=== PATIENT | female | born 1970 | race Caucasian/White ===

== ENCOUNTER 2018-09-17 12:29 | Observation (INO) | payer MEDICARE ==
[2018-09-17] MEDS ORDERED: BENADRYL 50 MG/ML IV ONE (13:26)
[2018-09-17] MEDS ORDERED: Pepcid 20 MG VIAL IV ONE ×2 (13:26→14:10)
[2018-09-17] MEDS ORDERED: PROTONIX 40 MG IV IV ONE ×2 (13:26→13:58)
[2018-09-17] MEDS ORDERED: MORPHINE SULFATE 4 MG INJ IV ONE (13:26)
[2018-09-17] MEDS ORDERED: Zofran 4 MG/2 ML VIAL IV ONE (13:26)
[2018-09-17] MEDS ORDERED: Sodium Chloride 0.9% 1000 ML 1,000 ML IV STA (13:26)
--- NOTE | 2018-09-17 13:26 | ERPHSYRPT ---
- History of Present Illness Time Seen by Provider: 09/17/18 13:23 Historian: patient Exam Limitations: no limitations Patient Subjective Stated Complaint: abdominal pain with N&V Triage Nursing Assessment: Pt c/o of abdominal pain in all 4 quadrants and low back pain, abdominal pain with palpation in all 4 quadrants, pt stated that she vomited at 0400 this morning, hx of pancreatitis, vitals wnl, pulses normal, rates pain 10/10, doesn't appear to be in any distress Physician History: pt has hx pancreatitis - heriditary type by hx , had GB out and non drinker- and feels like panc again to pt; no trauma; very tender all quads of abd ; Timing/Duration: day(s) Quality: pressure, sharpness, stabbing, throbbing Abdominal Pain Onset Location: RUQ, LUQ, RLQ, LLQ, epigastric, generalized abdomen Pain Radiation: back Severity of Pain-Max: moderate Severity of Pain-Current: moderate Modifying Factors: Improves With: nothing Associated Symptoms: back, nausea, vomiting Previous symptoms: same symptoms as today Allergies/Adverse Reactions: Penicillins Allergy (Verified 09/17/18 12:56) - Review of Systems Constitutional: No Fever, No Chills Eyes: No Symptoms Ears, Nose, & Throat: No Symptoms Respiratory: No Cough, No Dyspnea Cardiac: No Chest Pain, No Edema, No Syncope Abdominal/Gastrointestinal: Abdominal Pain, Nausea, Vomiting, No Diarrhea Genitourinary Symptoms: No Dysuria Musculoskeletal: Back Pain, No Neck Pain Skin: No Rash Neurological: No Dizziness, No Focal Weakness, No Sensory Changes Psychological: No Symptoms Endocrine: No Symptoms All Other Systems: Reviewed and Negative - Past Medical History Pertinent Past Medical History: Yes Cardiac History: Other Respiratory History: COPD GI Medical History: Pancreatitis, Other Other Medical History: enlarged heart - Past Surgical History Past Surgical History: Yes Gastrointestinal: Cholecystectomy Female Surgical History: Hysterectomy - Social History Smoking Status: Current every day smoker How long have you smoked: 22 years Exposure to second hand smoke: Yes Drug Use: none Patient Lives Alone: No - Female History Hx Now: No (hysterectomy) - Nursing Vital Signs Nursing Vital Signs: Initial Vital Signs Temperature 97.9 F 09/17/18 12:41 Pulse Rate 91 H 09/17/18 12:41 Blood Pressure 136/88 09/17/18 12:41 O2 Sat by Pulse Oximetry 97 09/17/18 12:41 Pain Scale Pain Intensity 3 - Physical Exam General Appearance: no apparent distress, alert Eye Exam: PERRL/EOMI, eyes nml inspection Ears, Nose, Throat Exam: normal ENT inspection, pharynx normal, moist mucous membranes Neck Exam: normal inspection, non-tender, supple, full range of motion Respiratory Exam: normal breath sounds, lungs clear, No respiratory distress Cardiovascular Exam: regular rate/rhythm, normal heart sounds Gastrointestinal/Abdomen Exam: soft, No tenderness, No mass Pelvic Exam: deferred Rectal Exam: deferred Back Exam: normal inspection, normal range of motion, No CVA tenderness, No vertebral tenderness Extremity Exam: normal inspection, normal range of motion, pelvis stable Neurologic Exam: alert, oriented x 3, cooperative, normal mood/affect, nml cerebellar function, sensation nml, No motor deficits Skin Exam: normal color, warm, dry SpO2: 97 Oxygen Delivery: Room Air - Course Nursing assessment & vital signs reviewed: Yes - CT Exams Abdomen/Pelvis CT Interpretation: Tele-radiologist Report, No appendicitis Ordered Tests: Active Orders 24 hr Category Date Time Status Clean Catch Urine Specimen STAT Care 09/17/18 13:26 Active EKG-ER Only STAT Care 09/17/18 13:26 Active IV Insertion STAT Care 09/17/18 13:26 Active ABDOMEN AND PELVIS W/0 CONTRAS [CT] Stat Exams 09/17/18 13:27 Taken AMYLASE Stat Lab 09/17/18 14:11 Completed CBC W DIFF Stat Lab 09/17/18 14:11 Completed CMP Stat Lab 09/17/18 14:11 Completed HCG QUALITATIVE,SERUM Stat Lab 09/17/18 14:11 Completed LIPASE Stat Lab 09/17/18 14:11 Completed Lactic Acid Stat Lab 09/17/18 14:10 Completed TROPONIN Q3H Lab 09/17/18 14:11 Completed TROPONIN Q3H Lab 09/17/18 16:30 Ordered TROPONIN Q3H Lab 09/17/18 19:30 Ordered TROPONIN Q3H Lab 09/17/18 22:30 Ordered TROPONIN Q3H Lab 09/18/18 01:30 Ordered UA W/RFX UR CULTURE Stat Lab 09/17/18 13:26 Completed Medication Summary Discontinued Medications Generic Name Dose Route Start Last Admin Trade Name Freq PRN Reason Stop Dose Admin Diphenhydramine HCl 25 mg 09/17/18 13:26 09/17/18 14:26 Benadryl 50 Mg/Ml IV 09/17/18 13:27 25 mg STAT ONE Administration Diphenhydramine HCl Confirm 09/17/18 13:58 Benadryl 50 Mg/Ml Administered 09/17/18 13:59 Dose 50 mg .ROUTE .STK-MED ONE Famotidine 20 mg 09/17/18 13:26 09/17/18 14:26 Pepcid 20 Mg Vial IV 09/17/18 13:27 20 mg STAT ONE Administration Famotidine Confirm 09/17/18 13:58 Pepcid 20 Mg Administered 09/17/18 13:59 Dose 20 mg .ROUTE .STK-MED ONE Famotidine Confirm 09/17/18 14:10 Pepcid 20 Mg Vial Administered 09/17/18 14:11 Dose 20 mg IV .STK-MED ONE Sodium Chloride 1,000 mls @ 999 mls/hr 09/17/18 13:26 09/17/18 15:51 Sodium Chloride 0.9% 1000 Ml IV 09/17/18 14:26 Infused .Q1H1M STA Infusion Sodium Chloride Confirm 09/17/18 13:58 Sodium Chloride 0.9% 1000 Ml Administered 09/17/18 13:59 Dose 1,000 mls @ ud .ROUTE .STK-MED ONE Morphine Sulfate 4 mg 09/17/18 13:26 09/17/18 14:26 Morphine Sulfate 4 Mg Inj IV 09/17/18 13:27 4 mg STAT ONE Administration Morphine Sulfate Confirm 09/17/18 13:58 Morphine Sulfate 4 Mg Inj Administered 09/17/18 13:59 Dose 4 mg .ROUTE .STK-MED ONE Ondansetron HCl 4 mg 09/17/18 13:26 09/17/18 14:27 Zofran 4 Mg/2 Ml Vial IV 09/17/18 13:27 4 mg STAT ONE Administration Ondansetron HCl Confirm 09/17/18 13:57 Zofran 4 Mg/2 Ml Vial Administered 09/17/18 13:58 Dose 4 mg .ROUTE .STK-MED ONE Pantoprazole Sodium 40 mg 09/17/18 13:26 09/17/18 14:27 Protonix 40 Mg Iv IV 09/17/18 13:27 40 mg STAT ONE Administration Pantoprazole Sodium Confirm 09/17/18 13:58 Protonix 40 Mg Iv Administered 09/17/18 13:59 Dose 40 mg IV .STK-MED ONE Lab/Rad Data: Laboratory Result Diagrams 09/17/18 14:11 09/17/18 14:11 Laboratory Results 09/17/18 09/17/18 09/17/18 Range/Units 14:11 14:11 14:11 WBC (4.0-10.5) K/mm3 RBC (4.1-5.4) M/mm3 Hgb (12.0-16.0) gm/dl Hct (35-47) % MCV (78-100) fl MCH (26-32) pg MCHC (32-36) g/dl RDW (11.5-14.0) % Plt Count (150-450) K/mm3 MPV (6-9.5) fl Gran % (36.0-66.0) % Eos # (Auto) (0-0.5) Absolute Lymphs (auto) (1.0-4.6) Absolute Monos (auto) (0.0-1.3) Lymphocytes % (24.0-44.0) % Monocytes % (0.0-12.0) % Eosinophils % (0.00-5.0) % Basophils % (0.0-0.4) % Absolute Granulocytes (1.4-6.9) Basophils # (0-0.4) Sodium 140 (137-145) mmol/L Potassium 4.1 (3.5-5.1) mmol/L Chloride 106 (98-107) mmol/L Carbon Dioxide 23 (22-30) mmol/L Anion Gap 15.7 H (5-15) MEQ/L BUN 22 H (7-17) mg/dL Creatinine 0.76 (0.52-1.04) mg/dL Estimated GFR > 60.0 ML/MIN Glucose 86 (74-106) mg/dL Lactic Acid (0.4-2.0) Calcium 9.7 (8.4-10.2) mg/dL Total Bilirubin 0.20 (0.2-1.3) mg/dL AST 23 (14-36) U/L ALT 23 (0-35) U/L Alkaline Phosphatase 94 (38-126) U/L Troponin I < 0.012 (0.000-0.034) ng/mL Serum Total Protein 7.8 (6.3-8.2) g/dL Albumin 4.6 (3.5-5.0) g/dL Amylase 106 (30-110) U/L Lipase 363 H (23-300) U/L Serum , Qual NEGATIVE (Negative) Urine Color (YELLOW) Urine Appearance (CLEAR) Urine pH (5-6) Ur Specific [place] (1.005-1.025) Urine Protein (Negative) Urine Ketones (NEGATIVE) Urine Blood (0-5) Rasheed/ul Urine Nitrite (NEGATIVE) Urine Bilirubin (NEGATIVE) Urine Urobilinogen (0-1) mg/dL Ur Leukocyte Esterase (NEGATIVE) Urine WBC (Auto) (0-5) /HPF Urine RBC (Auto) (0-2) /HPF U Epithel Cells (Auto) (FEW) /HPF Urine Bacteria (Auto) (NEGATIVE) /HPF Urine Mucus (Auto) (NEGATIVE) /HPF Urine Culture Reflexed (NO) Urine Glucose (NEGATIVE) mg/dL 09/17/18 09/17/18 09/17/18 Range/Units 14:11 14:10 13:26 WBC 8.9 (4.0-10.5) K/mm3 RBC 4.98 (4.1-5.4) M/mm3 Hgb 14.4 (12.0-16.0) gm/dl Hct 44.2 (35-47) % MCV 88.8 (78-100) fl MCH 28.9 (26-32) pg MCHC 32.6 (32-36) g/dl RDW 14.5 H (11.5-14.0) % Plt Count 254 (150-450) K/mm3 MPV 9.3 (6-9.5) fl Gran % 49.4 (36.0-66.0) % Eos # (Auto) 0.30 (0-0.5) Absolute Lymphs (auto) 3.49 (1.0-4.6) Absolute Monos (auto) 0.68 (0.0-1.3) Lymphocytes % 39.2 (24.0-44.0) % Monocytes % 7.6 (0.0-12.0) % Eosinophils % 3.4 (0.00-5.0) % Basophils % 0.4 (0.0-0.4) % Absolute Granulocytes 4.40 (1.4-6.9) Basophils # 0.04 (0-0.4) Sodium (137-145) mmol/L Potassium (3.5-5.1) mmol/L Chloride (98-107) mmol/L Carbon Dioxide (22-30) mmol/L Anion Gap (5-15) MEQ/L BUN (7-17) mg/dL Creatinine (0.52-1.04) mg/dL Estimated GFR ML/MIN Glucose (74-106) mg/dL Lactic Acid 1.7 (0.4-2.0) Calcium (8.4-10.2) mg/dL Total Bilirubin (0.2-1.3) mg/dL AST (14-36) U/L ALT (0-35) U/L Alkaline Phosphatase (38-126) U/L Troponin I (0.000-0.034) ng/mL Serum Total Protein (6.3-8.2) g/dL Albumin (3.5-5.0) g/dL Amylase (30-110) U/L Lipase (23-300) U/L Serum , Qual (Negative) Urine Color YELLOW (YELLOW) Urine Appearance CLEAR (CLEAR) Urine pH 5.0 (5-6) Ur Specific [place] 1.016 (1.005-1.025) Urine Protein NEGATIVE (Negative) Urine Ketones NEGATIVE (NEGATIVE) Urine Blood SMALL (0-5) Rasheed/ul Urine Nitrite NEGATIVE (NEGATIVE) Urine Bilirubin NEGATIVE (NEGATIVE) Urine Urobilinogen NEGATIVE (0-1) mg/dL Ur Leukocyte Esterase NEGATIVE (NEGATIVE) Urine WBC (Auto) NONE (0-5) /HPF Urine RBC (Auto) NONE (0-2) /HPF U Epithel Cells (Auto) NONE (FEW) /HPF Urine Bacteria (Auto) NONE (NEGATIVE) /HPF Urine Mucus (Auto) SLIGHT (NEGATIVE) /HPF Urine Culture Reflexed NO (NO) Urine Glucose NEGATIVE (NEGATIVE) mg/dL - Progress Progress: improved, re-examined Progress Note: 09/17/18 16:[address] shaw and pt and will place in on obs for pancreatitis Discussed with : Patricia Cuba Will see patient in: hospital (observation) Counseled pt/family regarding: lab results, diagnosis, need for follow-up, rad results - Departure Time of Disposition: 16:14 Departure Disposition: Observation Clinical Impression: Pancreatitis Condition: Good Critical Care Time: No Referrals: PHONG STAHL [Primary Care Provider] -
[2018-09-17 13:53] LABS: Appearance CLEAR (CLEAR); Bilirubin NEGATIVE (NEGATIVE); Blood SMALL Ery/ul (0-5); Glucose NEGATIVE (NEGATIVE); Ketones NEGATIVE (NEGATIVE); Leukocyte Esterase NEGATIVE (NEGATIVE); Nitrite NEGATIVE (NEGATIVE); Protein,Urine Dip NEGATIVE (Negative); Specific Gravity 1.016 (1.005-1.025); Urobilinogen NEGATIVE mg/dL (0-1)
[2018-09-17] MEDS ORDERED: Zofran 4 MG/2 ML VIAL ONE (13:57)
[2018-09-17] MEDS ORDERED: Sodium Chloride 0.9% 1000 ML 1,000 ML ONE (13:58)
[2018-09-17] MEDS ORDERED: Pepcid 20 MG ONE (13:58)
[2018-09-17] MEDS ORDERED: BENADRYL 50 MG/ML ONE (13:58)
[2018-09-17] MEDS ORDERED: MORPHINE SULFATE 4 MG INJ ONE (13:58)
[2018-09-17 14:12] LABS: BASOPHIL % 0.4 % (0.0-0.4); Basophil (Absolute #) 0.04 (0-0.4); Eosinophil % 3.4 % (0.00-5.0); Granulocytes % 49.4 % (36.0-66.0); Hematocrit 44.2 % (35-47); Hemoglobin 14.4 gm/dl (12.0-16.0); Lymphocyte (Absolute #) 3.49 (1.0-4.6); Lymphocytes % 39.2 % (24.0-44.0); Mean Cell Volume 88.8 fl (78-100); Mean Corpuscular Hemoglobin 28.9 pg (26-32); Mean Corpuscular Hgb Concent. 32.6 g/dl (32-36); Mean Platelet Volume 9.3 fl (6-9.5); Monocyte (Absolute #) 0.68 (0.0-1.3); Monocytes % 7.6 % (0.0-12.0); Platelet Count 254 K/mm3 (150-450); Red Blood Count 4.98 M/mm3 (4.1-5.4); Red Cell Distribution Width 14.5 % (11.5-14.0); White Blood Count 8.9 K/mm3 (4.0-10.5)
[2018-09-17 14:23] LABS: ALBUMIN 4.6 g/dL (3.5-5.0); ALKALINE PHOSPHATASE 94 U/L (38-126); AMYLASE 106 U/L (30-110); ANION GAP 15.7 MEQ/L (5-15); BLOOD UREA NITROGEN 22 mg/dL (7-17); CHLORIDE 106 mmol/L (98-107); Calcium 9.7 mg/dL (8.4-10.2); Carbon Dioxide 23 mmol/L (22-30); Creatinine 1 0.76 mg/dL (0.52-1.04); Glucose 86 mg/dL (74-106); LIPASE 363 U/L (23-300); Potassium 4.1 mmol/L (3.5-5.1); SGOT/AST 23 U/L (14-36); SGPT/ALT 23 U/L (0-35); SODIUM 140 mmol/L (137-145); Total Protein 7.8 g/dL (6.3-8.2)
[2018-09-17] MEDS ORDERED: Zofran 4 MG/2 ML VIAL IV PRN (16:49)
[2018-09-17] MEDS ORDERED: NovoLIN R SQ PRN (16:49)
[2018-09-17] MEDS ORDERED: TYLENOL 325 MG PO PRN (16:49)
[2018-09-17] MEDS: Sodium Chloride 0.9% 1000 ML 1,000 ML IV SCH (16:56)
[2018-09-17] MEDS: MORPHINE SULFATE 4 MG INJ IV PRN ×2 (17:54→22:55)
--- NOTE | 2018-09-17 20:22 | XRAY ---
Indication: Abdominal pain. History of pancreatitis. Multiple contiguous axial images obtained through the abdomen and pelvis without contrast as ordered. Comparison: None Lung bases essentially clear. Heart is not enlarged. Noncontrasted stomach and bowel loops appear nonobstructed. Normal appendix. Mild scattered sigmoid diverticulosis without diverticulitis. No free fluid/air. Previous cholecystectomy. Remaining liver, pancreas, spleen, adrenal glands, kidneys, ureters, bladder, and aorta appear unremarkable for noncontrast exam. Osseous structures intact. No ventral or inguinal hernias. Impression: 1. Sigmoid diverticulosis. 2. Remaining CT abdomen/pelvis without contrast exam is negative. Comment: Preliminary interpretation was made by [facility]. No discrepancy. CTDI 23.68
[2018-09-17] MEDS ORDERED: Ranexa 500 MG PO ONE (21:06)
[2018-09-17] MEDS: Pepcid 20 MG VIAL IV SCH (21:16)
[2018-09-17] MEDS: Nicoderm CQ 21 MG TOP SCH (21:16)
[2018-09-17] MEDS: XANAX 1 MG PO SCH (21:16)
[2018-09-17] MEDS: Ranexa 500 MG PO SCH (21:16)
[2018-09-17] MEDS ORDERED: Ranexa 500 MG PO SCH (22:00)
[2018-09-18] MEDS: Sodium Chloride 0.9% 1000 ML 1,000 ML IV SCH ×2 (02:50→12:48)
[2018-09-18] MEDS: MORPHINE SULFATE 4 MG INJ IV PRN ×3 (04:10→12:49)
[2018-09-18 05:54] LABS: BASOPHIL % 0.4 % (0.0-0.4); Basophil (Absolute #) 0.03 (0-0.4); Eosinophil % 3.9 % (0.00-5.0); Eosinophil (Absolute #) 0.33 (0-0.5); Granulocyte Absolute (ANC) 3.54 (1.4-6.9); Granulocytes % 42.2 % (36.0-66.0); Hematocrit 37.5 % (35-47); Hemoglobin 11.9 gm/dl (12.0-16.0); Lymphocyte (Absolute #) 3.74 (1.0-4.6); Lymphocytes % 44.5 % (24.0-44.0); Mean Cell Volume 91.5 fl (78-100); Mean Corpuscular Hgb Concent. 31.7 g/dl (32-36); Mean Platelet Volume 9.6 fl (6-9.5); Monocyte (Absolute #) 0.76 (0.0-1.3); Platelet Count 224 K/mm3 (150-450); Red Cell Distribution Width 14.5 % (11.5-14.0); White Blood Count 8.4 K/mm3 (4.0-10.5)
[2018-09-18 06:02] LABS: ALBUMIN 3.6 g/dL (3.5-5.0); ALKALINE PHOSPHATASE 62 U/L (38-126); ANION GAP 12.3 MEQ/L (5-15); BLOOD UREA NITROGEN 16 mg/dL (7-17); CHLORIDE 108 mmol/L (98-107); Calcium 8.6 mg/dL (8.4-10.2); Carbon Dioxide 21 mmol/L (22-30); Glucose 82 mg/dL (74-106); Potassium 4.2 mmol/L (3.5-5.1); SGOT/AST 17 U/L (14-36); SGPT/ALT 19 U/L (0-35); SODIUM 137 mmol/L (137-145); Total Protein 6.4 g/dL (6.3-8.2)
[2018-09-18] MEDS ORDERED: Nitrostat 0.4 MG Tablet SL PRN (07:36)
[2018-09-18] MEDS: Ranexa 500 MG PO SCH ×2 (08:28→20:31)
[2018-09-18] MEDS: Protonix 40MG Tablet PO SCH (08:28)
[2018-09-18] MEDS: XANAX 1 MG PO SCH ×2 (08:28→20:31)
[2018-09-18] MEDS: Pepcid 20 MG VIAL IV SCH ×2 (08:29→20:31)
[2018-09-18] MEDS: Zestril 10 MG PO SCH (08:30)
[2018-09-18] MEDS ORDERED: VITAMIN D2 PO SCH (10:00)
[2018-09-18] MEDS ORDERED: FLUZONE QUAD (36mo-64yo) 2018-2019 SYRINGE IM ONE (10:00)
[2018-09-18] MEDS: Nicoderm CQ 21 MG TOP SCH (20:30)
[2018-09-18] MEDS: Norco 10/325 MG Tablet PO PRN (20:31)
--- NOTE | 2018-09-18 21:25 | XRAY ---
Indication: Chest pain. Comparison: None PA/lateral chest demonstrates minimal lingular fibrosis/scarring. No focal infiltrate, consolidation, or large effusion. Heart is not enlarged. Vascularity normal. Bony thorax intact. Impression: Nonacute chest. Comment: Preliminary interpretation was made by [facility]. No critical discrepancy.
[2018-09-19] MEDS: Sodium Chloride 0.9% 1000 ML 1,000 ML IV SCH ×2 (01:41→11:40)
[2018-09-19] MEDS: Norco 10/325 MG Tablet PO PRN ×2 (02:58→09:51)
[2018-09-19 05:38] LABS: BASOPHIL % 0.3 % (0.0-0.4); Basophil (Absolute #) 0.02 (0-0.4); Eosinophil % 3.8 % (0.00-5.0); Eosinophil (Absolute #) 0.25 (0-0.5); Granulocyte Absolute (ANC) 3.27 (1.4-6.9); Granulocytes % 49.5 % (36.0-66.0); Hematocrit 37.4 % (35-47); Hemoglobin 11.9 gm/dl (12.0-16.0); Lymphocyte (Absolute #) 2.36 (1.0-4.6); Lymphocytes % 35.7 % (24.0-44.0); Mean Cell Volume 91.2 fl (78-100); Mean Corpuscular Hgb Concent. 31.8 g/dl (32-36); Mean Platelet Volume 9.3 fl (6-9.5); Monocyte (Absolute #) 0.71 (0.0-1.3); Monocytes % 10.7 % (0.0-12.0); Platelet Count 212 K/mm3 (150-450); Red Cell Distribution Width 14.3 % (11.5-14.0); White Blood Count 6.6 K/mm3 (4.0-10.5)
[2018-09-19 05:43] LABS: ALBUMIN 3.6 g/dL (3.5-5.0); ALKALINE PHOSPHATASE 70 U/L (38-126); ANION GAP 11.3 MEQ/L (5-15); BLOOD UREA NITROGEN 10 mg/dL (7-17); CHLORIDE 109 mmol/L (98-107); Calcium 8.8 mg/dL (8.4-10.2); Carbon Dioxide 22 mmol/L (22-30); Creatinine 1 0.84 mg/dL (0.52-1.04); Glucose 86 mg/dL (74-106); Potassium 4.3 mmol/L (3.5-5.1); SGOT/AST 20 U/L (14-36); SGPT/ALT 19 U/L (0-35); SODIUM 138 mmol/L (137-145); Total Protein 6.4 g/dL (6.3-8.2)
[2018-09-19] MEDS: Zestril 10 MG PO SCH (09:50)
[2018-09-19] MEDS: Protonix 40MG Tablet PO SCH (09:50)
[2018-09-19] MEDS: Ranexa 500 MG PO SCH (09:50)
[2018-09-19] MEDS: XANAX 1 MG PO SCH (09:50)
[2018-09-19] MEDS: Pepcid 20 MG VIAL IV SCH (09:51)
[2018-09-19] MEDS ORDERED: Tylenol #3 Tablet PO PRN (10:27)
[2018-09-19 16:08] VITALS: BP 134/70; PULSE 86; O2SAT 95
--- NOTE | 2018-09-19 19:45 | XRAY ---
Indication: Abdomen pain 2-3 months. Pancreatitis. Multiple contiguous axial images obtained through the abdomen and pelvis without contrast as ordered. Comparison: 2 days ago. Lung bases now demonstrates mild bibasilar dependent atelectasis. No infiltrate or effusion. Heart is not enlarged. Stomach is now distended with food/fluid. Noncontrasted stomach and bowel loops again nonobstructed. Normal appendix. Stable sigmoid diverticulosis, hysterectomy, and cholecystectomy. Remaining liver, pancreas, spleen, adrenal glands, kidneys, ureters, bladder, and aorta appear unremarkable for noncontrast exam. Impression: 1. Stable sigmoid diverticulosis. 2. No new or acute intra-abdominal/pelvic abnormalities on this noncontrast exam. Comment: Preliminary interpretation was made by [facility]. No discrepancy. CTDI 23.46
--- NOTE | 2018-09-20 10:10 | HP ---
HISTORY OF PRESENT ILLNESS: Rochelle Castaneda is a 47 year old woman with past medical history of chronic obstructive pulmonary disease, chronic pancreatitis. She presented to the emergency room with that unrelated to effort. She presented to the emergency room yesterday with generalized abdominal pain, nausea and vomiting which had started the night before. The patient also reported some low back pain. As per patient there were no particular participating factors. She denied intake of any unusual diet prior to onset of symptoms. Denied history of fever. She felt pain was similar to her prior symptoms of pancreatitis. Upon evaluation in the emergency room the patient was noted to have blood pressure of 136/88, heart rate of 91, temperature 97.9F. She was noted to be very tender in all quadrants. There was no reported history of trauma. After initial evaluation she was treated with Pepcid 20 mg x1, Benadryl 25 mg IV x1, normal saline 1 liter x1, morphine 4 mg IV x1, Zofran 4 mg x1, Protonix 40 mg x1. Subsequently she was admitted to medical floor for further monitoring and management. Since admission she was placed on IV fluids, IV analgesics, IV anti-emetic. She was placed on clear liquid diet that she tolerated well. At the time of this evaluation the patient is alert, awake and comfortable. States she is still having generalized abdominal pain. However not had nausea or vomiting since admission. She states she is tolerating clear liquid and is wanting her diet to be advanced. Denied any other complaint. PAST MEDICAL HISTORY: As noted above. Anxiety, hypertension. The patient states she does not follow up with any GI edi consultant. The patient has history of enlarged heart. The PAST SURGICAL HISTORY: Cholecystectomy. Hysterectomy. ALLERGIES: PENICILLIN. MEDICATIONS: Current medications were reviewed. FAMILY HISTORY: Noncontributory. SOCIAL HISTORY: The patient is an active smoker, denies alcohol abuse or illicit drug use. REVIEW OF SYSTEMS: Denies headache or dizziness. Denies fever. Complains of fatigue. Denies chest pain, shortness of breath or cough. Complains of generalized abdominal pain. History of nausea or vomiting which has resolved. Denies constipation or diarrhea. Denies urinary complaints. History of low back pain which has resolved. PHYSICAL EXAMINATION: A middle aged woman lying comfortably in bed, not in acute distress. VITAL SIGNS: Blood pressure 98/58, heart rate 58, respiratory rate 18, temperature 97.8F. Oxygen saturation 97% on room air. HEENT: Normocephalic. No pallor or icterus is noted. NECK: No JVD is present. CVS: S1, S2 present. RESPIRATORY: Breath sounds are bilaterally diminished and clear to auscultation. ABDOMEN: Obese, soft. Mild generalized tenderness present. No guarding or rigidity present. NEURO: She is alert, oriented x3. EXTREMITIES: No edema on bilateral lower extremities. BACK: Examination of back revealed no tenderness to percussion in spinal, paraspinal or lumbosacral paraspinal area. No CVA tenderness. LABORATORY DATA AND TESTS: Labs on admission showed unremarkable CBC. Initial CMP was notable for BUN 22, creatinine 0.76. Initial lipase 363. Serum negative. UA negative. Troponin has been less than 0.012 x4. Today's labs showed CBC with white blood cell of 8.1, hemoglobin 11.9, hematocrit 37.5, PLT 224,000. Today's BMP shows bicarbonate 21, BUN 16, creatinine 0.80. Liver function tests were essentially unremarkable. Lipase 152. CT scan of abdomen and pelvis from 09/17/2018 showed sigmoid diverticulosis, negative remaining CT. ASSESSMENT: A 47 year old woman with impression: 1) Abdominal pain, generalized. 2) Pancreatitis, clinically improving. 3) History of chronic obstructive pulmonary disease. 4) Dehydration. 5) Nausea and vomiting, resolved. 6) Anxiety. 7) Hypertension. PLAN: Continue IV fluids, PRN analgesics. Reportedly the patient has been declining p.o. analgesics and wishes to continue on IV analgesics per nursing. Continue antiemetic. Per patient request will advance diet, however in view of abdominal pain will advance to full liquid at this time. Continue to follow CBC and electrolytes. Likely discharge home tomorrow if clinically improves. Complete cessation of smoking was stressed with the patient. The plan was discussed with the patient. She seems to be in understanding and agreement. Discussed with patient's nurse, Kenny.
--- NOTE | 2018-09-20 13:45 | DS ---
DISCHARGE DIAGNOSES: 1) GENERALIZED ABDOMINAL PAIN, IMPROVED. 2) PANCREATITIS. 3) CHRONIC PAIN SYNDROME. 4) HYPERTENSION. 5) CHRONIC OBSTRUCTIVE PULMONARY DISEASE. 6) HISTORY OF ENLARGED HEART. 7) ANXIETY. 8) GASTROESOPHAGEAL REFLUX DISEASE. HOSPITAL COURSE: Rochelle Castaneda is a 47 year-old woman with past medical history of pancreatitis (serotype group B), hypertension, chronic pain syndrome, anxiety, gastroesophageal reflux disease. She was regularly follows with Dr. Davis. She presented to emergency room with generalized abdominal pain and low back pain. She stated her pain was similar to her prior symptoms of pancreatitis. There was no reported history of trauma. The patient is a nondrinker. Please refer to H&P for details. The patient was admitted to my service as I was on service call. Lab work up on admission was notable for elevated lipase of 363. Amylase was within normal limits. Liver function tests were unremarkable. CBC was essentially unremarkable. Troponin was less than 0.012 x4. Serum was negative. UA was essentially negative. With regards to her back pain it was felt to be related to abdominal pain. There was no reported history of trauma. CT scan of abdomen and pelvis showed sigmoid diverticulosis and remaining CT to be negative. With her symptoms and prior history of pancreatitis and elevated lipase, she was admitted with diagnosis of pancreatitis. She was placed on IV fluids, antiemetic and IV analgesic. During her further course, the patient stated her symptoms were better. Eventually she had been placed on clear liquid diet to advance as tolerated. Subsequent labs during her stay showed unremarkable CBC, CMP, and normalization of her lipase. Eventually she was advanced to full liquid diet that she tolerated well. She did appear clinically comfortable and did ask for diet to be advanced. Earlier today I was contacted by the patient's nurse that the patient is wanting her diet to be advanced since she had tolerated full liquids. I advised the patient's nurse to advance her to soft mechanical diet. During her further course that patient's pain had improved some and she was changed to p.o. analgesics as needed. However the patient had stated that IV analgesics helped her better. The patient requested that she be changed to Tylenol #3 instead of [place] since she stated that helped her better. During her further course the patient did continue to complain of abdominal pain, she wanted her diet advanced. Earlier today I was contacted by patient's nurse stating that the patient is wanting her diet advanced despite her pain. The patient's diet was advanced. At the time of my evaluation this afternoon the patient stated that she was still having abdominal pain. Given that I advised the patient that we would like to obtain a CT first prior in view of her pain. The patient denied any other symptoms such as nausea or vomiting. She was otherwise feeling better. Appeared clinically extremely comfortable despite reported pain (symptoms appeared out of proportion to clinical findings). PHYSICAL EXAMINATION: VITAL SIGNS: Blood pressure 130/72, heart rate 95, respiratory rate 20, temperature 98F. Oxygen saturation 96%. HEENT: No pallor or icterus is noted. NECK: No JVD is present. CVS: S1, S2 present. RESPIRATORY: Breath sounds are bilaterally diminished, scattered wheeze present. ABDOMEN: Soft, minimal generalized tenderness is present. No guarding or rigidity present. NEURO: She is alert, oriented x3. EXTREMITIES: No edema on bilateral lower extremities. LABORATORY DATA AND TESTS: Labs from today showed unremarkable CBC except hemoglobin 11.9. CMP was essentially unremarkable except for chloride of 109. Lipase was 157. The patient underwent repeat CT of abdomen and pelvis this evening preliminary report which was negative as reported to me by nursing. Chest x-ray from yesterday showed nonacute study. ASSESSMENT AND PLAN: A 47 year-old woman with prior medical history of hypertension, chronic obstructive pulmonary disease, anxiety, chronic pain syndrome, pancreatitis (serotype group B) was admitted with generalized abdominal pain and elevated lipase. CT abdomen and pelvis was essentially unremarkable. She was placed on treatment with IV fluids and analgesics and with that she improved clinically although she did continued to report some abdominal pain. She has continued to ask for her diet to be advanced that she tolerated very well. Upon evaluation her symptoms appear to be somewhat out of proportion to her clinical findings. Lab work up was essentially unremarkable. As noted earlier she underwent repeat CT which was essentially unremarkable as well as per preliminary report. The patient otherwise remained clinically stable. Eventually she was restarted on soft mechanical diet that she tolerated well. She was otherwise feeling well. She was somewhat reluctant to go home however I was informed by case management that the patient does not meet any criteria and needs to be discharged for insurance requirements. The patient has otherwise remained hemodynamically stable, clinically improved. Discussed with patient. The patient was discharged home on p.o. analgesics. She will continue on her home medication of proton pump inhibitor and other home medications as per her primary care physician. She was given prescription for Tylenol #3 (nine tablets) 1 tablet t.i.d. as needed for next few days. I have advised her to contact her primary care physician, Dr. Davis, in the morning and make follow up appointment with him as soon as possible. She was advised to drink ample p.o. fluids. She was advised to obtain CMP, CBC and lipase in one week and follow up with her primary care physician in one week. Compliance with diet and medications was stressed. Complete cessation of smoking, alcohol intake and illicit drug use was stressed. She was advised to return to the Emergency Room [facility] if any new signs and symptoms or reappearance of previous signs and symptoms are noted. The patient also stated that she does not follow with any GI information resource consultant. Additional work up will be done as outpatient per primary care physician. The patient's clinical condition, work-up results and plan of management and plan after discharge was discussed with patient. She seemed to be in understanding of the same and declined having any questions/concerns that remained unanswered. Please refer to the patient's chart, labs, diagnostic work up results for details. Please refer to discharge medication list from 09/19/2018 for details of medications on discharge. If you have any questions please feel free to contact me at [phone]. The plan was discussed with the patient's nurse, Kenny.
== END 2018-09-19 18:10 | disposition home or self-care (01) ==
LOC: ED 12:29 → MED SURG 16:43
PROVIDERS: ADMIT General Practice; ATTEND General Practice
DX: R10.84 Generalized abdominal pain (principal); K85.90 Acute pancreatitis without necrosis or infection, unspecified; G89.4 Chronic pain syndrome; I10 Essential (primary) hypertension; J44.9 Chronic obstructive pulmonary disease, unspecified; I51.7 Cardiomegaly; F41.9 Anxiety disorder, unspecified; K21.9 Gastro-esophageal reflux disease without esophagitis; F32.9 Major depressive disorder, single episode, unspecified; Z23 Encounter for immunization
CPT/HCPCS: 36000; 36415; 71046; 74176; 80053; 81001; 81025; 82150; 82962; 83605; 83690; 84484; 85025; 93005; 93268; 96360; 96374; 96375; 99285; G0008; G0378; 90686; J1200; J2270; J2405; A9270-GY

== ENCOUNTER 2021-03-26 22:18 | Emergency (ER) | payer MEDICARE ==
[2021-03-26 22:45] VITALS: O2SAT 97
[2021-03-26] MEDS ORDERED: Sodium Chloride 0.9% 1000 ML 1,000 ML IV STA (22:46)
[2021-03-26] MEDS ORDERED: Reglan 10 MG/2 ML IV ONE (22:46)
[2021-03-26] MEDS ORDERED: Inapsine 5 MG/2 ML IV ONE (22:46)
[2021-03-26] MEDS ORDERED: BENADRYL 50 MG/ML IV ONE (22:46)
[2021-03-26] MEDS ORDERED: TYLENOL 325 MG PO ONE (22:46)
--- NOTE | 2021-03-26 22:53 | ERPHSYRPT ---
- History of Present Illness Time Seen by Provider: 03/26/21 22:21 Source: patient Exam Limitations: no limitations Patient Subjective Stated Complaint: pt states she has had a headache for approx 1 week. states pain in burining and all over her head. states she has had he adaches like this before Triage Nursing Assessment: pt alert and oriented, answers questions approp. pt ambulatory with steady gait noted. respirations nonlabored. pupils equal and reactive. bilat upper and lower ext strength equal and wnl. no facial droop noted. Physician History: 50 years old with history of migraines and mild but all other medical problems presented in the ER with 1 week history of global headache aggravated with movements, activity and partial relief with being still, rest/sleep but never goes away completely. Associated with nausea and occasional vomiting without abdominal pain. No neck pain or rigidity. No fever or chills reported. Patient reports she has a longstanding history of migraine but it improved and did not have migraine for quite some time and this time its longer than usual migraine duration and a little more severe than usual. No numbness tingling or focal weakness. Denies any double visions/difficulty speech. No chest pain palpitations or shortness of breath. Timing/Duration: week(s) (1), gradual onset, worse Quality: burning, sharpness Head Pain Location: global Severity of Pain-Max: moderate Severity of Pain-Current: moderate Recent Head Trauma: no recent headache/trauma Modifying Factors: Improves With: immobilization, rest. Worsens With: movement, noise, position Associated Symptoms: nausea/vomiting, No confusion, No dizziness, No fatigue, No facial pain, No fever/chills, No light-headedness, No loss of consciousness, No nasal congestion, No nasal drainage, No neck pain, No numbness in legs/feet, No rash, No sweating, No scotoma, No seizures, No sinus infection, No sensitive to light, No speech problems, No stiff neck, No trouble walking, No vision changes, No visual disturbance, No weakness Previous symptoms: different symptoms Allergies/Adverse Reactions: Penicillins Allergy (Verified 09/17/18 12:56) Home Medications: ALPRAZolam 1 MG [Xanax 1 mg] 1 mg PO BID 09/17/18 [History] Hydrocodone Bit/Acetaminophen [Hydrocodon-Acetaminophn 10-325] 1 each PO TID 03/26/21 [History] Hx Tetanus, Diphtheria Vaccination/Date Given: No Hx Influenza Vaccination/Date Given: Yes Hx Pneumococcal Vaccination/Date Given: No Immunizations Up to Date: No Travel Risk - International Travel Have you traveled outside of the country in past 3 weeks: No - Coronavirus Screening Are you exhibiting any of the following symptoms?: Yes Symptoms: Vomiting/Diarrhea, Headaches/Body Aches/Fatigue Close contact with a COVID-19 positive Pt in past 14-21 Days: No - Vaccine Status Have you recieved a Covid-19 vaccination: No - Review of Systems Constitutional: No Symptoms Eyes: No Symptoms Ears, Nose, & Throat: No Symptoms Respiratory: No Symptoms Cardiac: No Symptoms Abdominal/Gastrointestinal: No Symptoms Genitourinary Symptoms: No Symptoms - Past Medical History Pertinent Past Medical History: Yes Neurological History: No Pertinent History ENT History: No Pertinent History Cardiac History: Other Respiratory History: COPD Endocrine Medical History: Hypoglycemia Musculoskeletal History: No Pertinent History GI Medical History: Pancreatitis, Other History: No Pertinent History Psycho-Social History: Depression Female Reproductive Disorders: No Pertinent History Other Medical History: enlarged heart - Past Surgical History Past Surgical History: Yes Neuro Surgical History: No Pertinent History Cardiac: No Pertinent History Respiratory: No Pertinent History Gastrointestinal: Cholecystectomy Genitourinary: Other Musculoskeletal: No Pertinent History Female Surgical History: Tubal Ligation, Other Other Surgical History: PARTIAL HYSTERECTOMY, ACUTE KIDNEY FAILURE - Social History Smoking Status: Current every day smoker How long have you smoked: 30 y rs Exposure to second hand smoke: Yes Drug Use: none Patient Lives Alone: No - Female History Hx Last Menstrual Period: hyster - Nursing Vital Signs Nursing Vital Signs: Initial Vital Signs Temperature 97.8 F 03/26/21 22:30 Pulse Rate 85 03/26/21 22:30 Respiratory Rate 18 03/26/21 22:30 Blood Pressure 167/89 03/26/21 22:30 O2 Sat by Pulse Oximetry 97 03/26/21 22:30 Pain Scale Pain Intensity 4 - Physical Exam SpO2: 97 Ordered Tests: Medication Summary Discontinued Medications Generic Name Dose Route Start Last Admin Trade Name Freq PRN Reason Stop Dose Admin Acetaminophen 975 mg 03/26/21 22:46 Tylenol 325 Mg PO 03/26/21 22:47 STAT ONE Acetaminophen Confirm 03/27/21 00:24 Tylenol 325 Mg Administered 03/27/21 00:25 Dose 975 mg .ROUTE .STK-MED ONE Aspirin 324 mg 03/27/21 00:11 Baby Aspirin 81 Mg Chew PO 03/27/21 00:12 STAT ONE Diphenhydramine HCl 25 mg 03/26/21 22:46 03/27/21 00:36 Benadryl 50 Mg/Ml IV 03/26/21 22:47 25 mg STAT ONE Administration Diphenhydramine HCl Confirm 03/27/21 00:24 Benadryl 50 Mg/Ml Administered 03/27/21 00:25 Dose 50 mg .ROUTE .STK-MED ONE Droperidol 1.25 mg 03/26/21 22:46 03/27/21 00:29 Inapsine 5 Mg/2 Ml IV 03/26/21 22:47 1.25 mg STAT ONE Administration Droperidol Confirm 03/27/21 00:24 Inapsine 5 Mg/2 Ml Administered 03/27/21 00:25 Dose 5 mg .ROUTE .STK-MED ONE Sodium Chloride 1,000 mls @ 999 mls/hr 03/26/21 22:46 03/27/21 00:29 Sodium Chloride 0.9% 1000 Ml IV 03/26/21 23:46 999 mls/hr .Q1H1M STA Administration Sodium Chloride Confirm 03/27/21 00:25 Sodium Chloride 0.9% 1000 Ml Administered 03/27/21 00:26 Dose 1,000 mls @ ud .ROUTE .STK-MED ONE Metoclopramide HCl 10 mg 03/26/21 22:46 03/27/21 00:31 Reglan 10 Mg/2 Ml IV 03/26/21 22:47 10 mg STAT ONE Administration Metoclopramide HCl Confirm 03/27/21 00:25 Reglan 10 Mg/2 Ml Administered 03/27/21 00:26 Dose 10 mg .ROUTE .STK-MED ONE Lab/Rad Data: Laboratory Result Diagrams 03/27/21 00:47 03/27/21 00:47 Laboratory Results 03/27/21 03/27/21 03/27/21 Range/Units 00:47 00:47 00:47 WBC 11.6 H (4.0-10.5) K/mm3 RBC 5.14 (4.1-5.4) M/mm3 Hgb 14.2 (12.0-16.0) gm/dl Hct 45.3 (35-47) % MCV 88.1 (78-100) fl MCH 27.6 (26-32) pg MCHC 31.3 L (32-36) g/dl RDW 14.5 H (11.5-14.0) % Plt Count 310 (150-450) K/mm3 MPV 9.6 (7.5-11.0) fl Gran % 58.9 (36.0-66.0) % Eos # (Auto) 0.25 (0-0.5) Absolute Lymphs (auto) 3.56 (1.0-4.6) Absolute Monos (auto) 0.90 (0.0-1.3) Lymphocytes % 30.7 (24.0-44.0) % Monocytes % 7.8 (0.0-12.0) % Eosinophils % 2.2 (0.00-5.0) % Basophils % 0.4 (0.0-0.4) % Absolute Granulocytes 6.84 (1.4-6.9) Basophils # 0.05 (0-0.4) Sodium 140 (137-145) mmol/L Potassium 3.3 L (3.5-5.1) mmol/L Chloride 105 (98-107) mmol/L Carbon Dioxide 26 (22-30) mmol/L Anion Gap 12.9 (5-15) MEQ/L BUN 13 (7-17) mg/dL Creatinine 0.70 (0.52-1.04) mg/dL Estimated GFR > 60.0 ML/MIN Glucose 94 (74-106) mg/dL Calcium 9.6 (8.4-10.2) mg/dL Magnesium 2.1 (1.6-2.3) mg/dL Total Bilirubin 0.20 (0.2-1.3) mg/dL AST 15 (14-36) U/L ALT 19 (0-35) U/L Alkaline Phosphatase 99 (38-126) U/L Troponin I < 0.012 (0.000-0.034) ng/mL Serum Total Protein 7.6 (6.3-8.2) g/dL Albumin 4.3 (3.5-5.0) g/dL Urine Color (YELLOW) Urine Appearance (CLEAR) Urine pH (5-6) Ur Specific [employer] (1.005-1.025) Urine Protein (Negative) Urine Ketones (NEGATIVE) Urine Blood (0-5) Rasheed/ul Urine Nitrite (NEGATIVE) Urine Bilirubin (NEGATIVE) Urine Urobilinogen (0-1) mg/dL Ur Leukocyte Esterase (NEGATIVE) Urine WBC (Auto) (0-5) /HPF Urine RBC (Auto) (0-2) /HPF U Epithel Cells (Auto) (FEW) /HPF Urine Bacteria (Auto) (NEGATIVE) /HPF Urine Mucus (Auto) (NEGATIVE) /HPF Urine Culture Reflexed (NO) Urine Glucose (NEGATIVE) mg/dL Urine Opiates Level (NEGATIVE) Ur Methadone (NEGATIVE) Urine Barbiturates (NEGATIVE) Ur Phencyclidine (PCP) (NEGATIVE) Urine Amphetamine (NEGATIVE) U Benzodiazepine Level (NEGATIVE) Urine Cocaine (NEGATIVE) Urine Marijuana (THC) (NEGATIVE) 03/27/21 03/27/21 Range/Units 00:41 00:41 WBC (4.0-10.5) K/mm3 RBC (4.1-5.4) M/mm3 Hgb (12.0-16.0) gm/dl Hct (35-47) % MCV (78-100) fl MCH (26-32) pg MCHC (32-36) g/dl RDW (11.5-14.0) % Plt Count (150-450) K/mm3 MPV (7.5-11.0) fl Gran % (36.0-66.0) % Eos # (Auto) (0-0.5) Absolute Lymphs (auto) (1.0-4.6) Absolute Monos (auto) (0.0-1.3) Lymphocytes % (24.0-44.0) % Monocytes % (0.0-12.0) % Eosinophils % (0.00-5.0) % Basophils % (0.0-0.4) % Absolute Granulocytes (1.4-6.9) Basophils # (0-0.4) Sodium (137-145) mmol/L Potassium (3.5-5.1) mmol/L Chloride (98-107) mmol/L Carbon Dioxide (22-30) mmol/L Anion Gap (5-15) MEQ/L BUN (7-17) mg/dL Creatinine (0.52-1.04) mg/dL Estimated GFR ML/MIN Glucose (74-106) mg/dL Calcium (8.4-10.2) mg/dL Magnesium (1.6-2.3) mg/dL Total Bilirubin (0.2-1.3) mg/dL AST (14-36) U/L ALT (0-35) U/L Alkaline Phosphatase (38-126) U/L Troponin I (0.000-0.034) ng/mL Serum Total Protein (6.3-8.2) g/dL Albumin (3.5-5.0) g/dL Urine Color STRAW (YELLOW) Urine Appearance CLEAR (CLEAR) Urine pH 7.0 (5-6) Ur Specific [employer] 1.005 (1.005-1.025) Urine Protein NEGATIVE (Negative) Urine Ketones NEGATIVE (NEGATIVE) Urine Blood SMALL (0-5) Rasheed/ul Urine Nitrite NEGATIVE (NEGATIVE) Urine Bilirubin NEGATIVE (NEGATIVE) Urine Urobilinogen NEGATIVE (0-1) mg/dL Ur Leukocyte Esterase NEGATIVE (NEGATIVE) Urine WBC (Auto) 0-2 (0-5) /HPF Urine RBC (Auto) 0-2 (0-2) /HPF U Epithel Cells (Auto) RARE (FEW) /HPF Urine Bacteria (Auto) RARE (NEGATIVE) /HPF Urine Mucus (Auto) SLIGHT (NEGATIVE) /HPF Urine Culture Reflexed NO (NO) Urine Glucose NEGATIVE (NEGATIVE) mg/dL Urine Opiates Level NEGATIVE (NEGATIVE) Ur Methadone NEGATIVE (NEGATIVE) Urine Barbiturates NEGATIVE (NEGATIVE) Ur Phencyclidine (PCP) NEGATIVE (NEGATIVE) Urine Amphetamine NEGATIVE (NEGATIVE) U Benzodiazepine Level NEGATIVE (NEGATIVE) Urine Cocaine NEGATIVE (NEGATIVE) Urine Marijuana (THC) NEGATIVE (NEGATIVE) - Progress Progress: improved Air Movement: good Progress Note: 03/27/21 00:35 She is given migraine cocktail, on reevaluation headache is improved. She has a nonfocal neuro exam. Because of her atypical migraine headache I have obtained CT which showed some vague area of flu hypoattenuation suggesting ischemia and recommended MRI for further evaluation. We will get baseline lab work done and neuro consult and patient would be admitted. 06/02/21 00:59 I have discussed with patient about need of further work-up and admission but she does not want to stay in the hospital at all. Patient states "I have stuff to do and will come back later". Discussed with patient about risk of permanent disability from stroke and delay in the diagnosis and management but she is adamant about leaving. Her is also there in the room and involved in the decision-making process. She is not confused or altered at all. She is advised to follow-up with the primary care and neurology. Blood Culture(s) Obtained: No Antibiotics given: No Counseled pt/family regarding: lab results, diagnosis, rad results - Departure Departure Disposition: AMA Clinical Impression: Stroke-like symptoms Migraine Qualifiers: Migraine type: unspecified Status migrainosus presence: without status migrainosus Intractability: not intractable Qualified Code(s): G43.909 - Migraine, unspecified, not intractable, without status migrainosus Condition: Stable Critical Care Time: Yes Critical Care Time(excluding separately billable procedures): Critical 30-74 mins Referrals: PHONG STAHL [Primary Care Provider] - (today for reevaluation) VANESSA AVILA [NON-STAFF PHY W/O PRIVILEGES] - (Call today for appointment.) Instructions: Stroke, Headache, Adult (DC) Additional Instructions: Follow-up with primary care and neurology for reevaluation. Return to ER for any numbness tingling focal weakness, worsening headache etc.
[2021-03-27] MEDS ORDERED: BABY ASPIRIN 81 MG CHEW PO ONE (00:11)
[2021-03-27] MEDS ORDERED: BENADRYL 50 MG/ML ONE (00:24)
[2021-03-27] MEDS ORDERED: Inapsine 5 MG/2 ML ONE (00:24)
[2021-03-27] MEDS ORDERED: TYLENOL 325 MG ONE (00:24)
[2021-03-27] MEDS ORDERED: Sodium Chloride 0.9% 1000 ML 1,000 ML ONE (00:25)
[2021-03-27] MEDS ORDERED: Reglan 10 MG/2 ML ONE (00:25)
[2021-03-27 00:55] LABS: Absolute Neutrophil Ct (ANC) 6.84 (1.4-6.9); BASOPHIL % 0.4 % (0.0-0.4); Basophil (Absolute #) 0.05 (0-0.4); Eosinophil % 2.2 % (0.00-5.0); Eosinophil (Absolute #) 0.25 (0-0.5); Hematocrit 45.3 % (35-47); Hemoglobin 14.2 gm/dl (12.0-16.0); Lymphocyte (Absolute #) 3.56 (1.0-4.6); Lymphocytes % 30.7 % (24.0-44.0); Mean Cell Volume 88.1 fl (78-100); Mean Corpuscular Hemoglobin 27.6 pg (26-32); Mean Corpuscular Hgb Concent. 31.3 g/dl (32-36); Mean Platelet Volume 9.6 fl (7.5-11.0); Monocytes % 7.8 % (0.0-12.0); Neutrophil % 58.9 % (36.0-66.0); Platelet Count 310 K/mm3 (150-450); Red Blood Count 5.14 M/mm3 (4.1-5.4); Red Cell Distribution Width 14.5 % (11.5-14.0); White Blood Count 11.6 K/mm3 (4.0-10.5)
[2021-03-27 01:03] LABS: ALBUMIN 4.3 g/dL (3.5-5.0); ALKALINE PHOSPHATASE 99 U/L (38-126); ANION GAP 12.9 MEQ/L (5-15); BLOOD UREA NITROGEN 13 mg/dL (7-17); CHLORIDE 105 mmol/L (98-107); Calcium 9.6 mg/dL (8.4-10.2); Carbon Dioxide 26 mmol/L (22-30); EST GLOMERULAR FILTRATION RATE > 60.0 ML/MIN; Glucose 94 mg/dL (74-106); MAGNESIUM 2.1 mg/dL (1.6-2.3); Potassium 3.3 mmol/L (3.5-5.1); SGOT/AST 15 U/L (14-36); SGPT/ALT 19 U/L (0-35); SODIUM 140 mmol/L (137-145); Total Protein 7.6 g/dL (6.3-8.2)
[2021-03-27 01:10] LABS: Amphetamine,Urine NEGATIVE (NEGATIVE); Barbiturate,Urine NEGATIVE (NEGATIVE); Benzodiazepine,Urine NEGATIVE (NEGATIVE); Cocaine,Urine NEGATIVE (NEGATIVE); Methadone,Urine NEGATIVE (NEGATIVE); Opiate,Urine NEGATIVE (NEGATIVE); PCP,Urine NEGATIVE (NEGATIVE); THC,Urine NEGATIVE (NEGATIVE)
[2021-03-27 01:17] LABS: Appearance CLEAR (CLEAR); Bacteria RARE /HPF (NEGATIVE); Bilirubin NEGATIVE (NEGATIVE); Blood SMALL Ery/ul (0-5); Epithelial Cells RARE /HPF (FEW); Glucose NEGATIVE (NEGATIVE); Ketones NEGATIVE (NEGATIVE); Leukocyte Esterase NEGATIVE (NEGATIVE); Mucus SLIGHT /HPF (NEGATIVE); Nitrite NEGATIVE (NEGATIVE); Protein,Urine Dip NEGATIVE (Negative); RBC 0-2 /HPF (0-2); Specific Gravity 1.005 (1.005-1.025); Urobilinogen NEGATIVE mg/dL (0-1); WBC 0-2 /HPF (0-5)
[2021-03-27 01:32] VITALS: BP 125/69; PULSE 79
--- NOTE | 2021-03-27 08:59 | XRAY ---
Indication: Cough and short of breath. Comparison: September 18, 2018. Portable chest again demonstrates normal heart and lungs. Bony thorax intact. No new/acute findings.
--- NOTE | 2021-03-27 09:01 | XRAY ---
Indication: Headache 1 week. Nausea and vomiting. Multiple contiguous axial images obtained through the head without contrast. Comparison: None Age-appropriate global atrophy with minimal periventricular degenerative micro-ischemia. No acute intra-cranial hemorrhage, abnormal extra-axial fluid collection, or mass effect. Fourth ventricle is midline without hydrocephalus. Flores-white matter differentiation preserved. Bony calvarium intact. Visualized paranasal sinuses and mastoid air cells are clear. Impression: Normal aging brain including atrophy and degenerative micro-ischemia. No acute intracranial abnormalities. Comment: Preliminary interpretation was made by [facility]. No critical discrepancy.
== END 2021-03-27 01:22 | disposition left against medical advice (07) ==
LOC: ED 22:18
DX: R29.818 Other symptoms and signs involving the nervous system (principal); Z79.891 Long term (current) use of opiate analgesic; G43.909 Migraine, unspecified, not intractable, without status migrainosus
CPT/HCPCS: 36000; 36415; 70450; 71045; 80053; 80307; 81001; 83735; 84484; 85025; 96374; 96375; 99284; 99291; J1200; A9270-GY

== ENCOUNTER 2021-09-18 21:25 | Emergency (ER) | payer MEDICARE ==
[2021-09-18 21:51] VITALS: BP 126/84; PULSE 106; O2SAT 98
--- NOTE | 2021-09-18 22:01 | ERPHSYRPT ---
- History of Present Illness Physician History: Patient was not seen by the physician she left prior to being seen after refusing evaluation. Allergies/Adverse Reactions: Penicillins Allergy (Verified 09/17/18 12:56) Home Medications: ALPRAZolam 1 MG [Xanax 1 mg] 1 mg PO BID 09/17/18 [History] Hydrocodone Bit/Acetaminophen [Hydrocodon-Acetaminophn 10-325] 1 each PO TID 03/26/21 [History] Hx Tetanus, Diphtheria Vaccination/Date Given: No Hx Influenza Vaccination/Date Given: Yes Hx Pneumococcal Vaccination/Date Given: No Travel Risk - Vaccine Status Have you recieved a Covid-19 vaccination: No - Past Medical History Pertinent Past Medical History: Yes Neurological History: No Pertinent History ENT History: No Pertinent History Cardiac History: Other Respiratory History: COPD Endocrine Medical History: Hypoglycemia Musculoskeletal History: No Pertinent History GI Medical History: Pancreatitis, Other History: No Pertinent History Psycho-Social History: Depression Female Reproductive Disorders: No Pertinent History Other Medical History: enlarged heart - Past Surgical History Past Surgical History: Yes Neuro Surgical History: No Pertinent History Cardiac: No Pertinent History Respiratory: No Pertinent History Gastrointestinal: Cholecystectomy Genitourinary: Other Musculoskeletal: No Pertinent History Female Surgical History: Tubal Ligation, Other Other Surgical History: PARTIAL HYSTERECTOMY, ACUTE KIDNEY FAILURE - Social History Smoking Status: Current every day smoker How long have you smoked: 30 y rs Exposure to second hand smoke: Yes Drug Use: none Patient Lives Alone: No - Nursing Vital Signs Nursing Vital Signs: Initial Vital Signs Temperature 97.8 F 09/18/21 21:50 Pulse Rate 106 H 09/18/21 21:50 Respiratory Rate 24 09/18/21 21:50 Blood Pressure 126/84 09/18/21 21:50 O2 Sat by Pulse Oximetry 98 09/18/21 21:50 Pain Scale Pain Intensity 8 - Physical Exam SpO2: 98 - Departure Departure Disposition: Left without being seen Clinical Impression: Shortness of breath Condition: Fair Critical Care Time: No Referrals: PHONG STAHL [Primary Care Provider] - Follow up/PCP as directed
== END 2021-09-18 21:50 | disposition left against medical advice (07) ==
LOC: ED 21:25
DX: R11.10 Vomiting, unspecified (principal)
CPT/HCPCS: 99282; G0463

== ENCOUNTER 2021-12-05 04:20 | Emergency (ER) | payer MEDICARE ==
[2021-12-05 04:42] VITALS: BP 133/94; PULSE 94
[2021-12-05] MEDS ORDERED: BABY ASPIRIN 81 MG CHEW PO ONE (04:58)
[2021-12-05] MEDS ORDERED: Nitrostat 0.4 MG (ED) SL ONE (04:58)
[2021-12-05 05:06] VITALS: O2SAT 98
[2021-12-05 05:14] LABS: Absolute Neutrophil Ct (ANC) 7.08 (1.4-6.9); Basophil (Absolute #) 0.04 (0-0.4); Eosinophil % 1.8 % (0.00-5.0); Hematocrit 44.4 % (35-47); Hemoglobin 14.2 gm/dl (12.0-16.0); Lymphocyte (Absolute #) 2.84 (1.0-4.6); Lymphocytes % 25.7 % (24.0-44.0); Mean Cell Volume 85.5 fl (78-100); Mean Corpuscular Hemoglobin 27.4 pg (26-32); Mean Platelet Volume 9.2 fl (7.5-11.0); Monocyte (Absolute #) 0.88 (0.0-1.3); Neutrophil % 64.1 % (36.0-66.0); Platelet Count 379 K/mm3 (150-450); Red Blood Count 5.19 M/mm3 (4.1-5.4); Red Cell Distribution Width 14.9 % (11.5-14.0)
[2021-12-05 05:27] LABS: ALBUMIN 4.4 g/dL (3.5-5.0); ALKALINE PHOSPHATASE 120 U/L (38-126); ANION GAP 14.5 MEQ/L (5-15); BLOOD UREA NITROGEN 14 mg/dL (7-17); CHLORIDE 103 mmol/L (98-107); Calcium 9.7 mg/dL (8.4-10.2); Carbon Dioxide 26 mmol/L (22-30); Creatinine 1 0.88 mg/dL (0.52-1.04); EST GLOMERULAR FILTRATION RATE > 60.0 ML/MIN; Glucose 112 mg/dL (74-106); NT PRO BNP 151 pg/mL (0-900); Potassium 4.3 mmol/L (3.5-5.1); SGOT/AST 20 U/L (14-36); SGPT/ALT 21 U/L (0-35); SODIUM 140 mmol/L (137-145); Total Protein 7.6 g/dL (6.3-8.2)
== END 2021-12-05 05:20 | disposition left against medical advice (07) ==
LOC: ED 04:20
DX: R07.9 Chest pain, unspecified (principal)
CPT/HCPCS: 36000; 36415; 80053; 83880; 84484; 85025; 85379; 93005; 93041; 94760; G0463; 99284

== ENCOUNTER 2021-12-16 02:16 | Emergency (ER) | payer MEDICARE ==
--- NOTE | 2021-12-16 02:19 | ERPHSYRPT ---
- History of Present Illness Time Seen by Provider: 12/16/21 02:18 Source: patient, EMS, police Exam Limitations: clinical condition Physician History: This is a 51-year-old obese white female patient brought into the emergency department by law enforcement and EMS. Apparently, there was a phone call made because this patient was walking in the middle of the road in her socks screaming help me help me. Patient is confused and talking nonstop. She is not answering her questions accurately. She appears intoxicated. We are unable to obtain an accurate medical history from her. Her vital signs are stable upon evaluation in the emergency room. Patient has a history of COPD, hypoglycemia, pancreatitis, anxiety issues and has a history of methamphetamine use/abuse. Timing/Duration: today Severity of Symptoms-Max: moderate Severity of Symptoms-Current: moderate Suicidal thoughts: other (Denies suicidal thoughts or homicidal thoughts.) Associated Symptoms: agitated, confused, other (Intoxicated) Previous symptoms: same symptoms as today Allergies/Adverse Reactions: Penicillins Allergy (Verified 12/16/21 02:23) Hx Tetanus, Diphtheria Vaccination/Date Given: No Hx Influenza Vaccination/Date Given: No Hx Pneumococcal Vaccination/Date Given: No Travel Risk - International Travel Have you traveled outside of the country in past 3 weeks: No - Coronavirus Screening Are you exhibiting any of the following symptoms?: No Close contact with a COVID-19 positive Pt in past 14-21 Days: No - Vaccine Status Have you recieved a Covid-19 vaccination: No - Past Medical History Pertinent Past Medical History: Yes Neurological History: No Pertinent History ENT History: No Pertinent History Cardiac History: Other Respiratory History: COPD Endocrine Medical History: Hypoglycemia Musculoskeletal History: No Pertinent History GI Medical History: Pancreatitis, Other History: No Pertinent History Psycho-Social History: Depression Female Reproductive Disorders: No Pertinent History Other Medical History: enlarged heart - Past Surgical History Past Surgical History: Yes Neuro Surgical History: No Pertinent History Cardiac: No Pertinent History Respiratory: No Pertinent History Gastrointestinal: Cholecystectomy Genitourinary: Other Musculoskeletal: No Pertinent History Female Surgical History: Tubal Ligation, Other Other Surgical History: PARTIAL HYSTERECTOMY, ACUTE KIDNEY FAILURE - Social History Smoking Status: Current every day smoker How long have you smoked: 30 y rs Exposure to second hand smoke: Yes Drug Use: none Patient Lives Alone: No - Review of Systems Constitutional: Other (Nonpurposeful movements. Flailing around) Eyes: No Symptoms Ears, Nose, & Throat: No Symptoms Respiratory: No Symptoms Cardiac: No Symptoms Abdominal/Gastrointestinal: No Symptoms Genitourinary Symptoms: No Symptoms Musculoskeletal: No Symptoms Skin: No Symptoms Neurological: No Symptoms Psychological: Emotional Lability, Other (Agitation) Endocrine: No Symptoms Hematologic/Lymphatic: No Symptoms Immunological/Allergic: No Symptoms All Other Systems: Reviewed and Negative - Nursing Vital Signs Nursing Vital Signs: Initial Vital Signs Temperature 97.4 F 12/16/21 02:17 Pulse Rate 116 H 12/16/21 02:17 Respiratory Rate 20 12/16/21 02:17 Blood Pressure 138/77 12/16/21 02:17 O2 Sat by Pulse Oximetry 99 12/16/21 02:17 Pain Scale Pain Intensity 0 - Physical Exam General Appearance: mild distress, anxiety, obese, other (Agitation. Intoxicated appearance. Flailing all 4 extremities without purpose.) Eyes, Ears, Nose, Throat Exam: normal ENT inspection, moist mucous membranes Neck Exam: normal inspection, non-tender, supple, full range of motion Respiratory Exam: normal breath sounds, lungs clear, airway intact, No chest tenderness, No respiratory distress Cardiovascular Exam: regular rate/rhythm, normal heart sounds, normal peripheral pulses Gastrointestinal/Abdominal Exam: soft, normal bowel sounds, No tenderness Extremities Exam: normal inspection, normal range of motion, No evidence of injury Current Suicidality: denies suicide plan Neurological Exam: alert, skein washer II-XII nml as tested, agitated, anxious, disoriented x 3 Appearance: disheveled, impaired insight Behavior/Eye Contact/Speech: increased rate of speech, belligerent, compulsive, uncooperative, agitated, intoxicated appearance Thoughts/Hallucinations: incoherent, paranoid, phobic Skin Exam: normal color, warm, dry SpO2 Interpretation: normal O2 Delivery: Room Air - Course Nursing assessment & vital signs reviewed: Yes Ordered Tests: Active Orders 24 hr Category Date Time Status EKG-ER Only STAT Care 12/16/21 02:21 Active IV Insertion STAT Care 12/16/21 02:21 Active HEAD WITHOUT CONTRAST [CT] Stat Exams 12/16/21 02:22 Taken ACETAMINOPHEN Stat Lab 12/16/21 03:10 Completed CBC W DIFF Stat Lab 12/16/21 03:10 Completed CMP Stat Lab 12/16/21 03:10 Completed CULTURE,URINE Stat Lab 12/16/21 03:33 Received ETHYL ALCOHOL Stat Lab 12/16/21 03:10 Completed SALICYLATE Stat Lab 12/16/21 03:10 Completed UA W/RFX UR CULTURE Stat Lab 12/16/21 03:33 Completed Urine Triage Profile Stat Lab 12/16/21 03:33 Completed Medication Summary Generic Name Dose Route Start Last Admin Trade Name Freq PRN Reason Stop Dose Admin Sodium Chloride 1,000 mls @ 100 mls/hr 12/16/21 02:30 12/16/21 04:07 Sodium Chloride 0.9% 1000 Ml IV 01/15/22 02:29 100 mls/hr .Q10H TIKA Administration Discontinued Medications Generic Name Dose Route Start Last Admin Trade Name Freq PRN Reason Stop Dose Admin Lorazepam 2 mg 12/16/21 02:23 12/16/21 03:12 Lorazepam 2 Mg/1 Ml 2 Mg Vial IV 12/16/21 02:24 2 mg STAT ONE Administration Lorazepam Confirm 12/16/21 03:10 Lorazepam 2 Mg/1 Ml 2 Mg Vial Administered 12/16/21 03:11 Dose 2 mg .ROUTE .STK-MED ONE Ziprasidone 10 mg 12/16/21 02:27 12/16/21 02:31 Ziprasidone Mesylate 20 Mg/Vial Vial IM 12/16/21 02:28 10 mg STAT ONE Administration Ziprasidone Confirm 12/16/21 02:28 Ziprasidone Mesylate 20 Mg/Vial Vial Administered 12/16/21 02:29 Dose 20 mg IM .STK-MED ONE Lab/Rad Data: Laboratory Result Diagrams 12/16/21 03:10 12/16/21 03:10 Laboratory Results 12/16/21 12/16/21 12/16/21 Range/Units 03:33 03:33 03:10 WBC (4.0-10.5) K/mm3 RBC (4.1-5.4) M/mm3 Hgb (12.0-16.0) gm/dl Hct (35-47) % MCV (78-100) fl MCH (26-32) pg MCHC (32-36) g/dl RDW (11.5-14.0) % Plt Count (150-450) K/mm3 MPV (7.5-11.0) fl Gran % (36.0-66.0) % Eos # (Auto) (0-0.5) Absolute Lymphs (auto) (1.0-4.6) Absolute Monos (auto) (0.0-1.3) Lymphocytes % (24.0-44.0) % Monocytes % (0.0-12.0) % Eosinophils % (0.00-5.0) % Basophils % (0.0-0.4) % Absolute Granulocytes (1.4-6.9) Basophils # (0-0.4) Sodium 142 (137-145) mmol/L Potassium 3.3 L (3.5-5.1) mmol/L Chloride 108 H (98-107) mmol/L Carbon Dioxide 22 (22-30) mmol/L Anion Gap 15.3 H (5-15) MEQ/L BUN 14 (7-17) mg/dL Creatinine 0.88 (0.52-1.04) mg/dL Estimated GFR > 60.0 ML/MIN Glucose 109 H (74-106) mg/dL Calcium 8.7 (8.4-10.2) mg/dL Total Bilirubin 0.30 (0.2-1.3) mg/dL AST 19 (14-36) U/L ALT 22 (0-35) U/L Alkaline Phosphatase 112 (38-126) U/L Serum Total Protein 7.1 (6.3-8.2) g/dL Albumin 4.1 (3.5-5.0) g/dL Urine Color YELLOW (YELLOW) Urine Appearance CLEAR (CLEAR) Urine pH 6.0 (5-6) Ur Specific Raiford 1.013 (1.005-1.025) Urine Protein NEGATIVE (Negative) Urine Ketones NEGATIVE (NEGATIVE) Urine Blood NEGATIVE (0-5) Rasheed/ul Urine Nitrite NEGATIVE (NEGATIVE) Urine Bilirubin NEGATIVE (NEGATIVE) Urine Urobilinogen NEGATIVE (0-1) mg/dL Ur Leukocyte Esterase NEGATIVE (NEGATIVE) Urine WBC (Auto) 0-2 (0-5) /HPF Urine RBC (Auto) NONE (0-2) /HPF U Epithel Cells (Auto) NONE (FEW) /HPF Urine Bacteria (Auto) NONE (NEGATIVE) /HPF Urine Mucus (Auto) SLIGHT (NEGATIVE) /HPF Urine Culture Reflexed NO (NO) Urine Glucose NEGATIVE (NEGATIVE) mg/dL Salicylates < 1.0 L (2-20) mg/dL Urine Opiates Level NEGATIVE (NEGATIVE) Ur Methadone NEGATIVE (NEGATIVE) Acetaminophen < 10 L (10-30) ug/ml Urine Barbiturates NEGATIVE (NEGATIVE) Ur Phencyclidine (PCP) NEGATIVE (NEGATIVE) Urine Amphetamine NEGATIVE (NEGATIVE) U Benzodiazepine Level NEGATIVE (NEGATIVE) Urine Cocaine NEGATIVE (NEGATIVE) Urine Marijuana (THC) POSITIVE (NEGATIVE) Ethyl Alcohol < 10 (0-10) mg/dL 12/16/21 Range/Units 03:10 WBC 10.0 (4.0-10.5) K/mm3 RBC 4.90 (4.1-5.4) M/mm3 Hgb 13.6 (12.0-16.0) gm/dl Hct 41.9 (35-47) % MCV 85.5 (78-100) fl MCH 27.8 (26-32) pg MCHC 32.5 (32-36) g/dl RDW 14.9 H (11.5-14.0) % Plt Count 275 (150-450) K/mm3 MPV 9.6 (7.5-11.0) fl Gran % 63.3 (36.0-66.0) % Eos # (Auto) 0.19 (0-0.5) Absolute Lymphs (auto) 2.66 (1.0-4.6) Absolute Monos (auto) 0.77 (0.0-1.3) Lymphocytes % 26.7 (24.0-44.0) % Monocytes % 7.7 (0.0-12.0) % Eosinophils % 1.9 (0.00-5.0) % Basophils % 0.4 (0.0-0.4) % Absolute Granulocytes 6.29 (1.4-6.9) Basophils # 0.04 (0-0.4) Sodium (137-145) mmol/L Potassium (3.5-5.1) mmol/L Chloride (98-107) mmol/L Carbon Dioxide (22-30) mmol/L Anion Gap (5-15) MEQ/L BUN (7-17) mg/dL Creatinine (0.52-1.04) mg/dL Estimated GFR ML/MIN Glucose (74-106) mg/dL Calcium (8.4-10.2) mg/dL Total Bilirubin (0.2-1.3) mg/dL AST (14-36) U/L ALT (0-35) U/L Alkaline Phosphatase (38-126) U/L Serum Total Protein (6.3-8.2) g/dL Albumin (3.5-5.0) g/dL Urine Color (YELLOW) Urine Appearance (CLEAR) Urine pH (5-6) Ur Specific Ra[place]ord (1.005-1.025) Urine Protein (Negative) Urine Ketones (NEGATIVE) Urine Blood (0-5) Rasheed/ul Urine Nitrite (NEGATIVE) Urine Bilirubin (NEGATIVE) Urine Urobilinogen (0-1) mg/dL Ur Leukocyte Esterase (NEGATIVE) Urine WBC (Auto) (0-5) /HPF Urine RBC (Auto) (0-2) /HPF U Epithel Cells (Auto) (FEW) /HPF Urine Bacteria (Auto) (NEGATIVE) /HPF Urine Mucus (Auto) (NEGATIVE) /HPF Urine Culture Reflexed (NO) Urine Glucose (NEGATIVE) mg/dL Salicylates (2-20) mg/dL Urine Opiates Level (NEGATIVE) Ur Methadone (NEGATIVE) Acetaminophen (10-30) ug/ml Urine Barbiturates (NEGATIVE) Ur Phencyclidine (PCP) (NEGATIVE) Urine Amphetamine (NEGATIVE) U Benzodiazepine Level (NEGATIVE) Urine Cocaine (NEGATIVE) Urine Marijuana (THC) (NEGATIVE) Ethyl Alcohol (0-10) mg/dL - Progress Progress: improved, re-examined Progress Note: 12/16/21 04:31 CT scan of the head without contrast shows no acute intracranial abnormality. Counseled pt/family regarding: lab results, diagnosis, rad results - Departure Departure Disposition: [facility]/Intermediate Clinical Impression: Medical clearance for incarceration Condition: Stable Critical Care Time: No Referrals: PHONG STAHL [Primary Care Provider] - Follow up/PCP as directed
[2021-12-16] MEDS ORDERED: Ativan 2 MG/1 ML VIAL IV ONE (02:23)
[2021-12-16] MEDS ORDERED: Geodon 20 MG INJ IM ONE ×2 (02:27→02:28)
[2021-12-16] MEDS ORDERED: Sodium Chloride 0.9% 1000 ML 1,000 ML IV SCH (02:30)
[2021-12-16] MEDS ORDERED: Ativan 2 MG/1 ML VIAL ONE (03:10)
[2021-12-16 03:13] LABS: Absolute Neutrophil Ct (ANC) 6.29 (1.4-6.9); Basophil (Absolute #) 0.04 (0-0.4); Eosinophil % 1.9 % (0.00-5.0); Eosinophil (Absolute #) 0.19 (0-0.5); Hematocrit 41.9 % (35-47); Hemoglobin 13.6 gm/dl (12.0-16.0); Lymphocyte (Absolute #) 2.66 (1.0-4.6); Lymphocytes % 26.7 % (24.0-44.0); Mean Cell Volume 85.5 fl (78-100); Mean Corpuscular Hemoglobin 27.8 pg (26-32); Mean Corpuscular Hgb Concent. 32.5 g/dl (32-36); Mean Platelet Volume 9.6 fl (7.5-11.0); Monocyte (Absolute #) 0.77 (0.0-1.3); Monocytes % 7.7 % (0.0-12.0); Neutrophil % 63.3 % (36.0-66.0); Platelet Count 275 K/mm3 (150-450); Red Cell Distribution Width 14.9 % (11.5-14.0)
[2021-12-16 03:21] VITALS: O2SAT 100
[2021-12-16 03:24] LABS: ACETAMINOPHEN < 10 ug/ml (10-30); ALBUMIN 4.1 g/dL (3.5-5.0); ALKALINE PHOSPHATASE 112 U/L (38-126); ANION GAP 15.3 MEQ/L (5-15); BLOOD UREA NITROGEN 14 mg/dL (7-17); CHLORIDE 108 mmol/L (98-107); Calcium 8.7 mg/dL (8.4-10.2); Carbon Dioxide 22 mmol/L (22-30); Creatinine 1 0.88 mg/dL (0.52-1.04); EST GLOMERULAR FILTRATION RATE > 60.0 ML/MIN; ETHYL ALCOHOL < 10 mg/dL (0-10); Glucose 109 mg/dL (74-106); Potassium 3.3 mmol/L (3.5-5.1); SALICYLATE < 1.0 mg/dL (2-20); SGOT/AST 19 U/L (14-36); SGPT/ALT 22 U/L (0-35); SODIUM 142 mmol/L (137-145); Total Protein 7.1 g/dL (6.3-8.2)
[2021-12-16 03:43] LABS: Appearance CLEAR (CLEAR); Bilirubin NEGATIVE (NEGATIVE); Blood NEGATIVE Ery/ul (0-5); Glucose NEGATIVE (NEGATIVE); Ketones NEGATIVE (NEGATIVE); Leukocyte Esterase NEGATIVE (NEGATIVE); Mucus SLIGHT /HPF (NEGATIVE); Nitrite NEGATIVE (NEGATIVE); Protein,Urine Dip NEGATIVE (Negative); Specific Gravity 1.013 (1.005-1.025); Urobilinogen NEGATIVE mg/dL (0-1); WBC 0-2 /HPF (0-5)
[2021-12-16 03:55] LABS: Amphetamine,Urine NEGATIVE (NEGATIVE); Barbiturate,Urine NEGATIVE (NEGATIVE); Benzodiazepine,Urine NEGATIVE (NEGATIVE); Cocaine,Urine NEGATIVE (NEGATIVE); Methadone,Urine NEGATIVE (NEGATIVE); Opiate,Urine NEGATIVE (NEGATIVE); PCP,Urine NEGATIVE (NEGATIVE); THC,Urine POSITIVE (NEGATIVE)
[2021-12-16] MEDS ORDERED: Sodium Chloride 0.9% 1000 ML 1,000 ML ONE (04:01)
[2021-12-16 04:17] VITALS: BP 135/85; PULSE 96
--- NOTE | 2021-12-16 08:55 | XRAY ---
Indication: Confusion and agitation. Multiple contiguous axial images obtained through the head without contrast. Comparison: March 26, 2021. Again minimal periventricular degenerative micro-ischemia. No acute intracranial hemorrhage, abnormal extra-axial fluid collection, or mass effect. Fourth ventricle is midline without hydrocephalus. Flores-white matter differentiation preserved. Bony calvarium intact. New mild mucosal thickening right maxillary sinus. Mastoid air cells are clear. Impression: Again minimal degenerative micro-ischemia within normal limits for patient's age. No new/acute intracranial abnormalities. Incidental paranasal sinus disease. Comment: Preliminary interpretation made by [facility]. No critical discrepancy.
== END 2021-12-16 04:59 ==
LOC: ED 02:16
DX: Z02.89 Encounter for other administrative examinations (principal); R45.1 Restlessness and agitation; R41.0 Disorientation, unspecified; J44.9 Chronic obstructive pulmonary disease, unspecified; F41.9 Anxiety disorder, unspecified; Z72.0 Tobacco use
CPT/HCPCS: 36000; 36415; 70450; 80053; 80307; 81001; 85025; 87086; 93005; 96372; 96374; 99285; G0480; J2060; J3486

== ENCOUNTER 2022-09-30 14:45 | Emergency (ER) | payer MEDICARE ==
[2022-09-30 15:10] VITALS: BP 124/111; PULSE 88; O2SAT 100
--- NOTE | 2022-09-30 15:24 | ERPHSYRPT ---
- History of Present Illness Time Seen by Provider: 09/30/22 15:20 Source: patient, family Exam Limitations: no limitations Patient Subjective Stated Complaint: Upper back/neck pain Triage Nursing Assessment: Patient ambulated back to ED and transferred self to bed. Patient A+O X 3. Patient's skin pink, warm and dry. Patient complains of upper back/neck pain for the past 4 months. Patient complains of pain 9/10. Physician History: This is an overweight 51-year-old female who presents with approximately 3-month history of tender subcutaneous mass posterior midline neck. Patient is not on any steroids. She had appointment to see her primary care physician but was unable to see the doctor at her last visit. She has no history of any trauma to her neck or prior surgeries. Timing/Duration: other (Approximately 3 months) Quality: painful (Especially to palpation) Severity: mild (To moderate) Location: other (Posterior midline neck) Possible Causes: other (Lipoma) Associated Symptoms: denies symptoms Allergies/Adverse Reactions: Penicillins Allergy (Verified 09/30/22 15:03) Home Medications: No Reportable Medications [No Reported Medications] 09/30/22 [History] Hx Tetanus, Diphtheria Vaccination/Date Given: No Hx Influenza Vaccination/Date Given: No Hx Pneumococcal Vaccination/Date Given: No Immunizations Up to Date: Yes Travel Risk - International Travel Have you traveled outside of the country in past 3 weeks: No - Coronavirus Screening Are you exhibiting any of the following symptoms?: No Close contact with a COVID-19 positive Pt in past 14-21 Days: No - Vaccine Status Have you recieved a Covid-19 vaccination: No - Review of Systems Constitutional: No Symptoms Eyes: No Symptoms Ears, Nose, & Throat: No Symptoms Respiratory: No Symptoms Cardiac: No Symptoms Abdominal/Gastrointestinal: No Symptoms Genitourinary Symptoms: No Symptoms Musculoskeletal: No Symptoms Skin: Other (Tender skin posterior midline neck) Neurological: No Symptoms Psychological: No Symptoms Endocrine: No Symptoms Hematologic/Lymphatic: No Symptoms Immunological/Allergic: No Symptoms All Other Systems: Reviewed and Negative - Past Medical History Pertinent Past Medical History: Yes Neurological History: No Pertinent History ENT History: No Pertinent History Cardiac History: Other Respiratory History: COPD Endocrine Medical History: Hypoglycemia Musculoskeletal History: No Pertinent History GI Medical History: Pancreatitis, Other History: No Pertinent History Psycho-Social History: Depression Female Reproductive Disorders: No Pertinent History Other Medical History: enlarged heart - Past Surgical History Past Surgical History: Yes Neuro Surgical History: No Pertinent History Cardiac: No Pertinent History Respiratory: No Pertinent History Gastrointestinal: Cholecystectomy Genitourinary: Other Musculoskeletal: No Pertinent History Female Surgical History: Tubal Ligation, Other Other Surgical History: PARTIAL HYSTERECTOMY, ACUTE KIDNEY FAILURE - Social History Smoking Status: Current every day smoker How long have you smoked: 30 y rs Exposure to second hand smoke: No Drug Use: none Patient Lives Alone: No - Nursing Vital Signs Nursing Vital Signs: Initial Vital Signs Temperature 97.9 F 09/30/22 15:04 Pulse Rate 88 09/30/22 15:04 Respiratory Rate 18 09/30/22 15:04 Blood Pressure 124/111 09/30/22 15:04 O2 Sat by Pulse Oximetry 100 09/30/22 15:04 Pain Scale Pain Intensity 9 - Physical Exam General Appearance: no apparent distress, alert, anxiety Eye Exam: PERRL/EOMI, eyes nml inspection Ears, Nose, Throat Exam: normal ENT inspection, moist mucous membranes Neck Exam: other (Base of cervical spine midline subcutaneous lipoma. No evidence of infection.) Respiratory Exam: chest tenderness, respiratory distress, airway intact Gastrointestinal/Abdomen Exam: No tenderness Pelvic Exam: not done Rectal Exam: not done Back Exam: normal inspection, normal range of motion, No CVA tenderness, No vertebral tenderness Extremity Exam: normal inspection, normal range of motion, pelvis stable Neurologic Exam: alert, oriented x 3, cooperative, child advocate II-XII nml as tested, normal mood/affect, nml cerebellar function, nml station & gait, sensation nml Skin Exam: normal color, warm, dry Lymphatic Exam: No adenopathy SpO2 Interpretation: normal SpO2: 100 O2 Delivery: Room Air - Course Nursing assessment & vital signs reviewed: Yes - Progress Progress: unchanged Counseled pt/family regarding: diagnosis, need for follow-up - Departure Departure Disposition: Home Clinical Impression: Lipoma of neck Condition: Stable Critical Care Time: No Referrals: BRITT MONTEMAYOR MD [Primary Care Provider] - Follow up/PCP as directed Additional Instructions: Use Tylenol and ibuprofen for pain control. Call your primary care doctor tomorrow morning for referral to a general surgeon for possible excision of your neck lipoma
== END 2022-09-30 15:50 | disposition home or self-care (01) ==
LOC: ED 14:45
DX: D17.0 Benign lipomatous neoplasm of skin and subcutaneous tissue of head, face and neck (principal); Z28.310 Unvaccinated for COVID-19; Z72.0 Tobacco use
CPT/HCPCS: 99281

== ENCOUNTER 2023-07-06 17:32 | Emergency (ER) | payer MEDICARE ==
[2023-07-06] MEDS ORDERED: BABY ASPIRIN 81 MG CHEW PO ONE (17:37)
[2023-07-06] MEDS ORDERED: SUBLIMAZE 100 MCG/2 ML IV ONE (17:37)
[2023-07-06 17:40] VITALS: BP 104/81; RESP 18; TEMP 97.3; O2SAT 98
[2023-07-06 17:42] VITALS: PULSE 88
[2023-07-06] MEDS ORDERED: Sodium Chloride 0.9% 1000 ML 1,000 ML IV SCH (17:45)
[2023-07-06 18:00] LABS: BASOPHIL % 0.8 % (0.0-0.4); Basophil (Absolute #) 0.08 x10^3/uL (0-0.4); Eosinophil % 2.6 % (0.00-5.0); Eosinophil (Absolute #) 0.27 x10^3/uL (0-0.5); Hematocrit 44.6 % (35-47); Hemoglobin 14.1 g/dL (12.0-16.0); IMMATURE GRAN # 0.03 x10^3u/L (0.00-0.03); IMMATURE GRAN % 0.3 % (0.00-0.4); Lymphocyte (Absolute #) 2.86 x10^3/uL (1.0-4.6); Lymphocytes % 27.1 % (24.0-44.0); Mean Cell Volume 92.3 fL (78-100); Mean Corpuscular Hemoglobin 29.2 pg (26-32); Mean Corpuscular Hgb Concent. 31.6 g/dL (32-36); Mean Platelet Volume 9.5 fL (7.5-11.0); Monocyte (Absolute #) 0.91 x10^3/uL (0.0-1.3); Monocytes % 8.6 % (0.0-12.0); Neutrophil % 60.6 % (36.0-66.0); Platelet Count 228 x10^3/uL (150-450); Red Blood Count 4.83 x10^6/uL (4.1-5.4); Red Cell Distribution Width 13.8 % (11.5-14.0); White Blood Count 10.6 x10^3/uL (4.0-10.5)
[2023-07-06 18:14] LABS: ALBUMIN 4.6 g/dL (3.5-5.0); ANION GAP 16.9 MEQ/L (5-15); BILIRUBIN,TOTAL 0.5 mg/dL (0.2-1.3); Calcium 9.4 mg/dL (8.4-10.2); Creatinine 1 1.4 mg/dL (0.52-1.04); Potassium 4.2 mmol/L (3.5-5.1); Total Protein 8.2 g/dL (6.3-8.2)
--- NOTE | 2023-07-06 18:51 | XRAY ---
CLINICAL HISTORY:pain COMPARISON:CXR 03/27/2021. TECHNIQUE:X-ray of the chest, AP upright portable view. FINDINGS: A radiographic examination of the chest demonstrates clear lungs. No collapse or consolidation is seen. Normal configuration of the mediastinum. The john are normal in size and position. The cardiac size is normal. Costophrenic and cardiophrenic angles are clear. Retrocardiac and retrosternal spaces are normal. Mild cortical thickening is noted in the left mid-clavicle with central lucency. IMPRESSION: 1. Normal X-ray study of the chest. No interval development of any disease process. 2. A note is made of mild cortical thickening with central lucency in the left mid-clavicle. 3. Differential possibilities include osteoid osteoma and osteoblastoma. 4. Further evaluation with CT would be helpful for further evaluation if clinically indicated. Electronically Signed by: Lou Dickson MD. (07/06/2023 17:50:08 [employer] ENGINEER)
--- NOTE | 2023-07-06 19:01 | ERPHSYRPT ---
- History of Present Illness Time Seen by Provider: 07/06/23 17:45 Historian: patient Exam Limitations: no limitations Patient Subjective Stated Complaint: pt here for chest pain to center of chest about 30 mins ago, denies any now,, pt rode bike to food bank when pain started Triage Nursing Assessment: pt alert, denies pain now, resp easy, skin w.d.p slight edema to lower legs, chest clear Physician History: Patient is a 52-year-old white female who presents with complaint of chest pain she was standing in line waiting for food distribution when she developed chest pain substernal in location she got a little nauseated she had some shortness of breath and felt lightheaded. She does have a history of CHF. Timing/Duration: today Activities at Onset: none Quality: cramping Location: substernal Chest Pain Radiation: no radiation Severity of Pain-Max: moderate Severity of Pain-Current: none Modifying Factors: Improves With: nothing Associated Symptoms: nausea, shortness of breath, cough, weakness, dizziness Prior Chest Pain/Cardiac Workup: no prior chest pain Nitro Today/Relief: no nitro taken today Aspirin Treatment Today: no aspirin today Allergies/Adverse Reactions: Penicillins Allergy (Verified 07/06/23 17:34) Home Medications: ALPRAZolam [Alprazolam] 1 mg PO BID 07/06/23 [History] Buspirone HCl 15 mg PO DAILY 07/06/23 [History] Meloxicam 1 ea DAILY 07/06/23 [History] Trazodone HCl 100 mg PO DAILY 07/06/23 [History] Hx Tetanus, Diphtheria Vaccination/Date Given: No Hx Influenza Vaccination/Date Given: No Hx Pneumococcal Vaccination/Date Given: No Immunizations Up to Date: Yes Travel Risk - International Travel Have you traveled outside of the country in past 3 weeks: No - Coronavirus Screening Are you exhibiting any of the following symptoms?: No Close contact with a COVID-19 positive Pt in past 14-21 Days: No - Vaccine Status Have you recieved a Covid-19 vaccination: No - Review of Systems Constitutional: No Fever, No Chills Eyes: No Symptoms Ears, Nose, & Throat: No Symptoms Respiratory: No Cough, No Dyspnea Cardiac: Chest Pain, No Edema, No Syncope Abdominal/Gastrointestinal: No Abdominal Pain, No Nausea, No Vomiting, No Diarrhea Genitourinary Symptoms: No Dysuria Musculoskeletal: No Back Pain, No Neck Pain Skin: No Rash Neurological: No Dizziness, No Focal Weakness, No Sensory Changes Psychological: No Symptoms Endocrine: No Symptoms All Other Systems: Reviewed and Negative - Past Medical History Pertinent Past Medical History: Yes Neurological History: No Pertinent History ENT History: No Pertinent History Cardiac History: Other Respiratory History: COPD Endocrine Medical History: Hypoglycemia Musculoskeletal History: No Pertinent History GI Medical History: Pancreatitis, Other History: No Pertinent History Psycho-Social History: Depression Female Reproductive Disorders: No Pertinent History Other Medical History: enlarged heart - Past Surgical History Past Surgical History: Yes Neuro Surgical History: No Pertinent History Cardiac: No Pertinent History Respiratory: No Pertinent History Gastrointestinal: Cholecystectomy Genitourinary: Other Musculoskeletal: No Pertinent History Female Surgical History: Tubal Ligation, Other Other Surgical History: PARTIAL HYSTERECTOMY, ACUTE KIDNEY FAILURE - Social History Smoking Status: Current every day smoker How long have you smoked: 30 y rs Exposure to second hand smoke: Yes Drug Use: none Patient Lives Alone: No - Nursing Vital Signs Nursing Vital Signs: Initial Vital Signs Temperature 97.3 F 07/06/23 17:39 Pulse Rate 87 07/06/23 17:39 Respiratory Rate 18 07/06/23 17:39 Blood Pressure 104/81 07/06/23 17:39 O2 Sat by Pulse Oximetry 98 07/06/23 17:39 Pain Scale Pain Intensity 0 - Physical Exam General Appearance: mild distress, alert Eye Exam: PERRL/EOMI, eyes nml inspection Ears, Nose, Throat Exam: normal ENT inspection, moist mucous membranes Neck Exam: normal inspection, non-tender, supple, full range of motion Respiratory Exam: normal breath sounds, lungs clear, No respiratory distress Cardiovascular Exam: regular rate/rhythm, normal heart sounds Gastrointestinal/Abdomen Exam: soft, No tenderness, No mass Back Exam: normal inspection, No CVA tenderness, No vertebral tenderness Extremity Exam: normal inspection, normal range of motion Neurologic Exam: alert, oriented x 3, cooperative, normal mood/affect, sensation nml, No motor deficits Skin Exam: normal color, warm, dry SpO2: 98 - Course Nursing assessment & vital signs reviewed: Yes EKG Interpreted by Me: RATE (86), Sinus Rhythm, NORMAL AXIS, NORMAL INTERVALS, Non-specific ST Changes - Radiology Exams Chest X-ray Interpretation: Interpreted by me, Negative Ordered Tests: Active Orders 24 hr Category Date Time Status EKG-ER Only STAT Care 07/06/23 17:37 Active IV Insertion STAT Care 07/06/23 17:37 Active CHEST 1 VIEW (PORTABLE) Stat Exams 07/06/23 17:51 Completed CBC W DIFF Stat Lab 07/06/23 17:55 Completed CMP Stat Lab 07/06/23 17:55 Completed D-DIMER QUANTITATIVE Stat Lab 07/06/23 17:55 Completed LIPASE Stat Lab 07/06/23 17:55 Completed Lactic Acid Stat Lab 07/06/23 17:59 Completed NT PRO BNPII Stat Lab 07/06/23 17:55 Completed TROPONIN Q4H Lab 07/06/23 17:55 Completed TROPONIN Q4H Lab 07/06/23 21:45 Ordered TROPONIN Q4H Lab 07/07/23 01:45 Ordered UA W/RFX UR CULTURE Stat Lab 07/06/23 17:37 Ordered Urine Triage Profile Stat Lab 07/06/23 17:37 Ordered Medication Summary Generic Name Dose Route Start Last Admin Trade Name Freq PRN Reason Stop Dose Admin Sodium Chloride 1,000 mls @ 50 mls/hr 07/06/23 17:45 Sodium Chloride 0.9% 1000 Ml IV 08/05/23 17:44 .Q20H TIKA Discontinued Medications Generic Name Dose Route Start Last Admin Trade Name Freq PRN Reason Stop Dose Admin Aspirin 324 mg 07/06/23 17:37 07/06/23 17:50 Aspirin 81 Mg Tab.Chew PO 07/06/23 17:38 324 mg STAT ONE Administration Fentanyl Citrate 50 mcg 07/06/23 17:37 Fentanyl Citrate 100 Mcg/2 Ml* Vial IV 07/06/23 17:38 STAT ONE Lab/Rad Data: Laboratory Result Diagrams 07/06/23 17:55 07/06/23 17:55 Laboratory Results 07/06/23 07/06/23 07/06/23 Range/Units 17:59 17:55 17:55 WBC (4.0-10.5) x10^3/uL RBC (4.1-5.4) x10^6/uL Hgb (12.0-16.0) g/dL Hct (35-47) % MCV (78-100) fL MCH (26-32) pg MCHC (32-36) g/dL RDW (11.5-14.0) % Plt Count (150-450) x10^3/uL MPV (7.5-11.0) fL Gran % (36.0-66.0) % Immature Gran % (Auto) (0.00-0.4) % Nucleat RBC Rel Count (0.00-0.1) % Eos # (Auto) (0-0.5) x10^3/uL Immature Gran # (Auto) (0.00-0.03) x10^3u/L Absolute Lymphs (auto) (1.0-4.6) x10^3/uL Absolute Monos (auto) (0.0-1.3) x10^3/uL Absolute Nucleated RBC (0.00-0.01) x10^3u/L Lymphocytes % (24.0-44.0) % Monocytes % (0.0-12.0) % Eosinophils % (0.00-5.0) % Basophils % (0.0-0.4) % Absolute Granulocytes (1.4-6.9) x10^3/uL Basophils # (0-0.4) x10^3/uL D-Dimer (0.0-0.50) mg/L Sodium (137-145) mmol/L Potassium (3.5-5.1) mmol/L Chloride (98-107) mmol/L Carbon Dioxide (22-30) mmol/L Anion Gap (5-15) MEQ/L BUN (7-17) mg/dL Creatinine (0.52-1.04) mg/dL Estimated GFR ML/MIN Glucose (74-106) mg/dL Lactic Acid 2.3 H (0.4-2.0) Calcium (8.4-10.2) mg/dL Total Bilirubin (0.2-1.3) mg/dL AST (14-36) U/L ALT (0-35) U/L Alkaline Phosphatase (38-126) U/L Troponin I < 0.012 (0.000-0.034) ng/mL NT-Pro-B Natriuret Pep 41.4 (<300) pg/mL Serum Total Protein (6.3-8.2) g/dL Albumin (3.5-5.0) g/dL Lipase (23-300) U/L 07/06/23 07/06/23 07/06/23 Range/Units 17:55 17:55 17:55 WBC 10.6 H (4.0-10.5) x10^3/uL RBC 4.83 (4.1-5.4) x10^6/uL Hgb 14.1 (12.0-16.0) g/dL Hct 44.6 (35-47) % MCV 92.3 (78-100) fL MCH 29.2 (26-32) pg MCHC 31.6 L (32-36) g/dL RDW 13.8 (11.5-14.0) % Plt Count 228 (150-450) x10^3/uL MPV 9.5 (7.5-11.0) fL Gran % 60.6 (36.0-66.0) % Immature Gran % (Auto) 0.3 (0.00-0.4) % Nucleat RBC Rel Count 0.0 (0.00-0.1) % Eos # (Auto) 0.27 (0-0.5) x10^3/uL Immature Gran # (Auto) 0.03 (0.00-0.03) x10^3u/L Absolute Lymphs (auto) 2.86 (1.0-4.6) x10^3/uL Absolute Monos (auto) 0.91 (0.0-1.3) x10^3/uL Absolute Nucleated RBC 0.00 (0.00-0.01) x10^3u/L Lymphocytes % 27.1 (24.0-44.0) % Monocytes % 8.6 (0.0-12.0) % Eosinophils % 2.6 (0.00-5.0) % Basophils % 0.8 (0.0-0.4) % Absolute Granulocytes 6.40 (1.4-6.9) x10^3/uL Basophils # 0.08 (0-0.4) x10^3/uL D-Dimer 0.36 (0.0-0.50) mg/L Sodium 143 (137-145) mmol/L Potassium 4.2 (3.5-5.1) mmol/L Chloride 109 H (98-107) mmol/L Carbon Dioxide 21 L (22-30) mmol/L Anion Gap 16.9 H (5-15) MEQ/L BUN 14 (7-17) mg/dL Creatinine 1.40 H (0.52-1.04) mg/dL Estimated GFR 42.0 ML/MIN Glucose 124 H (74-106) mg/dL Lactic Acid (0.4-2.0) Calcium 9.4 (8.4-10.2) mg/dL Total Bilirubin 0.50 (0.2-1.3) mg/dL AST 29 (14-36) U/L ALT 28 (0-35) U/L Alkaline Phosphatase 99 (38-126) U/L Troponin I (0.000-0.034) ng/mL NT-Pro-B Natriuret Pep (<300) pg/mL Serum Total Protein 8.2 (6.3-8.2) g/dL Albumin 4.6 (3.5-5.0) g/dL Lipase 160 (23-300) U/L - Progress Progress: improved Air Movement: good Blood Culture(s) Obtained: No Antibiotics given: No Medical Desision Making - Diagnostic Testing Radiological Interpretation: Interpreted by me, Reviewed by me - Risk of complications Low Risk: Low risk of morbidity from additional dx testing or treatment - Departure Departure Disposition: Home Clinical Impression: Chest pain Condition: Stable Critical Care Time: No Referrals: BRITT MONTEMAYOR MD [Primary Care Provider] - Follow up/PCP as directed Instructions: Chest Pain (DC) Additional Instructions: Follow-up with your PCP
== END 2023-07-06 19:27 | disposition home or self-care (01) ==
LOC: ED 17:32
DX: R07.9 Chest pain, unspecified (principal); R11.0 Nausea; R06.02 Shortness of breath; R42 Dizziness and giddiness; I50.9 Heart failure, unspecified; Z79.899 Other long term (current) drug therapy; Z28.310 Unvaccinated for COVID-19; Z72.0 Tobacco use
CPT/HCPCS: 36000; 36415; 71045; 80053; 83605; 83690; 83880; 84484; 85025; 85379; 93005; 99283; A9270-GY

== ENCOUNTER 2023-08-09 12:53 | Emergency (ER) | payer MEDICARE ==
[2023-08-09 13:07] VITALS: RESP 16; TEMP 96.7
--- NOTE | 2023-08-09 13:19 | ERPHSYRPT ---
- History of Present Illness Time Seen by Provider: 08/09/23 13:14 Historian: patient Exam Limitations: no limitations Patient Subjective Stated Complaint: . Triage Nursing Assessment: . Physician History: Patient is a 52-year-old female who presents with a complaint of his hurts when I pee "". She has had lower abdominal pain and left and right flank pain. She denies any fever she denies any frequency but she complains of severe dysuria and burning when she urinates. She also mentions that her urine is foul-smel ling. She denies any vomiting or diarrhea but has had some slight nausea Timing/Duration: day(s) (3) Activities at Onset: none Quality: burning, fullness, throbbing Abdominal Pain Onset Location: suprapubic, flank (Bilateral flank) Severity of Pain-Max: moderate Severity of Pain-Current: mild Modifying Factors: Improves With: urinating Associated Symptoms: vomiting Previous symptoms: no prior history Allergies/Adverse Reactions: Penicillins Allergy (Verified 07/06/23 17:34) Home Medications: ALPRAZolam [Alprazolam] 1 mg PO BID 07/06/23 [History] Buspirone HCl 15 mg PO DAILY 07/06/23 [History] Meloxicam 1 ea DAILY 07/06/23 [History] Trazodone HCl 100 mg PO DAILY 07/06/23 [History] Hx Tetanus, Diphtheria Vaccination/Date Given: Yes Hx Influenza Vaccination/Date Given: Yes Hx Pneumococcal Vaccination/Date Given: No Travel Risk - International Travel Have you traveled outside of the country in past 3 weeks: No - Coronavirus Screening Are you exhibiting any of the following symptoms?: No Close contact with a COVID-19 positive Pt in past 14-21 Days: No - Vaccine Status Have you recieved a Covid-19 vaccination: No - Review of Systems Constitutional: No Fever, No Chills Eyes: No Symptoms Ears, Nose, & Throat: No Symptoms Respiratory: No Cough, No Dyspnea Cardiac: No Chest Pain, No Edema, No Syncope Abdominal/Gastrointestinal: No Abdominal Pain, No Nausea, No Vomiting, No Diarrhea Genitourinary Symptoms: Dysuria, Urgency Musculoskeletal: No Back Pain, No Neck Pain Skin: No Rash Neurological: No Dizziness, No Focal Weakness, No Sensory Changes Psychological: No Symptoms Endocrine: No Symptoms All Other Systems: Reviewed and Negative - Past Medical History Pertinent Past Medical History: Yes Neurological History: No Pertinent History ENT History: No Pertinent History Cardiac History: Other Respiratory History: COPD Endocrine Medical History: Hypoglycemia Musculoskeletal History: No Pertinent History GI Medical History: Pancreatitis, Other History: No Pertinent History Psycho-Social History: Depression Female Reproductive Disorders: No Pertinent History Other Medical History: enlarged heart - Past Surgical History Past Surgical History: Yes Neuro Surgical History: No Pertinent History Cardiac: No Pertinent History Respiratory: No Pertinent History Gastrointestinal: Cholecystectomy Genitourinary: Other Musculoskeletal: No Pertinent History Female Surgical History: Tubal Ligation, Other Other Surgical History: PARTIAL HYSTERECTOMY, ACUTE KIDNEY FAILURE - Social History Smoking Status: Current every day smoker How long have you smoked: 30 y rs Exposure to second hand smoke: Yes Drug Use: none Patient Lives Alone: No - Nursing Vital Signs Nursing Vital Signs: Initial Vital Signs Temperature 96.7 F 08/09/23 13:03 Pulse Rate 86 08/09/23 13:03 Respiratory Rate 16 08/09/23 13:03 Blood Pressure 121/81 08/09/23 13:03 O2 Sat by Pulse Oximetry 99 08/09/23 13:03 Pain Scale Pain Intensity 10 - Physical Exam General Appearance: mild distress, alert Eye Exam: PERRL/EOMI, eyes nml inspection Ears, Nose, Throat Exam: normal ENT inspection, pharynx normal, moist mucous membranes Neck Exam: normal inspection, non-tender, supple, full range of motion Respiratory Exam: normal breath sounds, lungs clear, No respiratory distress Cardiovascular Exam: regular rate/rhythm, normal heart sounds Gastrointestinal/Abdomen Exam: tenderness (Tenderness over the suprapubic area), No mass, No rebound Pelvic Exam: deferred Rectal Exam: deferred Back Exam: normal inspection, normal range of motion, CVA tenderness (Bila teral), No vertebral tenderness Extremity Exam: normal inspection, normal range of motion, pelvis stable Neurologic Exam: alert, oriented x 3, cooperative, normal mood/affect, nml cerebellar function, sensation nml, No motor deficits Skin Exam: normal color, warm, dry SpO2 Interpretation: normal SpO2: 99 O2 Delivery: Room Air - Course Nursing assessment & vital signs reviewed: Yes - CT Exams Abdomen/Pelvis CT Interpretation: Tele-radiologist Report Ordered Tests: Active Orders 24 hr Category Date Time Status IV Insertion STAT Care 08/09/23 13:54 Active ABDOMEN AND PELVIS W CONTRAST [CT] Stat Exams 08/09/23 15:08 Completed CBC W DIFF Stat Lab 08/09/23 14:22 Completed CMP Stat Lab 08/09/23 14:22 Completed LIPASE Stat Lab 08/09/23 14:22 Completed Lactic Acid Stat Lab 08/09/23 13:54 Completed UA W/RFX UR CULTURE Stat Lab 08/09/23 13:03 Completed Medication Summary Discontinued Medications Generic Name Dose Route Start Last Admin Trade Name Beatrice PRN Reason Stop Dose Admin Hydromorphone HCl 1 mg 08/09/23 13:54 08/09/23 14:24 Hydromorphone 1 Mg/1ml Inj IV 08/09/23 13:55 1 mg STAT ONE Administration Hydromorphone HCl Confirm 08/09/23 14:23 Hydromorphone 1 Mg/1ml Inj Administered 08/09/23 14:24 Dose 1 mg .ROUTE .STK-MED ONE Sodium Chloride 1,000 mls @ 999 mls/hr 08/09/23 13:54 08/09/23 14:24 Sodium Chloride 0.9% 1000 Ml IV 08/09/23 14:54 999 mls/hr .Q1H1M STA Administration Sodium Chloride Confirm 08/09/23 14:23 Sodium Chloride 0.9% 1000 Ml Administered 08/09/23 14:24 Dose 1,000 mls @ ud .ROUTE .STK-MED ONE Ondansetron HCl 4 mg 08/09/23 13:54 08/09/23 14:24 Ondansetron Hcl 4 Mg/2 Ml Vial IV 08/09/23 13:55 4 mg STAT ONE Administration Ondansetron HCl 4 mg 08/09/23 14:12 08/09/23 14:17 Zofran 4 Mg/Udtablet Orally Disintegrating PO 08/09/23 14:13 Not Given STAT ONE Ondansetron HCl Confirm 08/09/23 14:23 Ondansetron Hcl 4 Mg/2 Ml Vial Administered 08/09/23 14:24 Dose 4 mg .ROUTE .STK-MED ONE Lab/Rad Data: Laboratory Result Diagrams 08/09/23 14:22 08/09/23 14:22 Laboratory Results 08/09/23 08/09/23 08/09/23 Range/Units 14:22 14:22 13:54 WBC 7.9 (4.0-10.5) x10^3/uL RBC 4.68 (4.1-5.4) x10^6/uL Hgb 13.8 (12.0-16.0) g/dL Hct 42.6 (35-47) % MCV 91.0 (78-100) fL MCH 29.5 (26-32) pg MCHC 32.4 (32-36) g/dL RDW 13.6 (11.5-14.0) % Plt Count 228 (150-450) x10^3/uL MPV 9.4 (7.5-11.0) fL Gran % 50.7 (36.0-66.0) % Immature Gran % (Auto) 0.1 (0.00-0.4) % Nucleat RBC Rel Count 0.0 (0.00-0.1) % Eos # (Auto) 0.27 (0-0.5) x10^3/uL Immature Gran # (Auto) 0.01 (0.00-0.03) x10^3u/L Absolute Lymphs (auto) 2.90 (1.0-4.6) x10^3/uL Absolute Monos (auto) 0.67 (0.0-1.3) x10^3/uL Absolute Nucleated RBC 0.00 (0.00-0.01) x10^3u/L Lymphocytes % 36.5 (24.0-44.0) % Monocytes % 8.4 (0.0-12.0) % Eosinophils % 3.4 (0.00-5.0) % Basophils % 0.9 (0.0-0.4) % Absolute Granulocytes 4.02 (1.4-6.9) x10^3/uL Basophils # 0.07 (0-0.4) x10^3/uL Sodium 142 (137-145) mmol/L Potassium 4.2 (3.5-5.1) mmol/L Chloride 111 H (98-107) mmol/L Carbon Dioxide 25 (22-30) mmol/L Anion Gap 10.3 (5-15) MEQ/L BUN 19 H (7-17) mg/dL Creatinine 1.17 H (0.52-1.04) mg/dL Estimated GFR 51.6 ML/MIN Glucose 76 (74-106) mg/dL Lactic Acid 1.1 (0.4-2.0) Calcium 9.2 (8.4-10.2) mg/dL Total Bilirubin 0.40 (0.2-1.3) mg/dL AST 25 (14-36) U/L ALT 23 (0-35) U/L Alkaline Phosphatase 80 (38-126) U/L Serum Total Protein 7.5 (6.3-8.2) g/dL Albumin 4.3 (3.5-5.0) g/dL Lipase 202 (23-300) U/L Urine Color (Yellow) Urine Appearance (Clear) Urine pH (4.6-8.0) Ur Specific [place] (1.005-1.030) Urine Protein (Negative) Urine Glucose (UA) (Negative) mg/dL Urine Ketones (Negative) Urine Blood (Negative) Urine Nitrite (Negative) Urine Bilirubin (Negative) Urine Urobilinogen (0.2) mg/dL Ur Leukocyte Esterase (Negative) U Hyaline Cast (Auto) (0-2) /LPF Urine Microscopic RBC (0-5) /HPF Urine Microscopic WBC (0-5) /HPF Ur Epithelial Cells (None Seen) /HPF Urine Bacteria (None Seen) /HPF Urine Culture Reflexed (NO) 08/09/23 Range/Units 13:03 WBC (4.0-10.5) x10^3/uL RBC (4.1-5.4) x10^6/uL Hgb (12.0-16.0) g/dL Hct (35-47) % MCV (78-100) fL MCH (26-32) pg MCHC (32-36) g/dL RDW (11.5-14.0) % Plt Count (150-450) x10^3/uL MPV (7.5-11.0) fL Gran % (36.0-66.0) % Immature Gran % (Auto) (0.00-0.4) % Nucleat RBC Rel Count (0.00-0.1) % Eos # (Auto) (0-0.5) x10^3/uL Immature Gran # (Auto) (0.00-0.03) x10^3u/L Absolute Lymphs (auto) (1.0-4.6) x10^3/uL Absolute Monos (auto) (0.0-1.3) x10^3/uL Absolute Nucleated RBC (0.00-0.01) x10^3u/L Lymphocytes % (24.0-44.0) % Monocytes % (0.0-12.0) % Eosinophils % (0.00-5.0) % Basophils % (0.0-0.4) % Absolute Granulocytes (1.4-6.9) x10^3/uL Basophils # (0-0.4) x10^3/uL Sodium (137-145) mmol/L Potassium (3.5-5.1) mmol/L Chloride (98-107) mmol/L Carbon Dioxide (22-30) mmol/L Anion Gap (5-15) MEQ/L BUN (7-17) mg/dL Creatinine (0.52-1.04) mg/dL Estimated GFR ML/MIN Glucose (74-106) mg/dL Lactic Acid (0.4-2.0) Calcium (8.4-10.2) mg/dL Total Bilirubin (0.2-1.3) mg/dL AST (14-36) U/L ALT (0-35) U/L Alkaline Phosphatase (38-126) U/L Serum Total Protein (6.3-8.2) g/dL Albumin (3.5-5.0) g/dL Lipase (23-300) U/L Urine Color Yellow (Yellow) Urine Appearance Cloudy A (Clear) Urine pH 6.5 (4.6-8.0) Ur Specific [place] 1.020 (1.005-1.030) Urine Protein Negative (Negative) Urine Glucose (UA) Negative (Negative) mg/dL Urine Ketones Trace A (Negative) Urine Blood Negative (Negative) Urine Nitrite Negative (Negative) Urine Bilirubin Negative (Negative) Urine Urobilinogen 1.0 A (0.2) mg/dL Ur Leukocyte Esterase Negative (Negative) U Hyaline Cast (Auto) NONE SEEN (0-2) /LPF Urine Microscopic RBC 0-2 (0-5) /HPF Urine Microscopic WBC 3-5 (0-5) /HPF Ur Epithelial Cells Moderate A (None Seen) /HPF Urine Bacteria Rare A (None Seen) /HPF Urine Culture Reflexed NO (NO) - Progress Progress: unchanged Medical Desision Making - Diagnostic Testing Diagnostic test were ordered, analyzed, and reviewed by me: Yes Radiological Interpretation: Reviewed by me - Risk of complications Low Risk: Low risk of morbidity from additional dx testing or treatment - Departure Departure Disposition: Home Clinical Impression: Colitis Condition: Stable Critical Care Time: No Referrals: BRITT MONTEMAYOR MD [Primary Care Provider] - Follow up/PCP as directed Instructions: Inflammatory Bowel Disease (DC) Prescriptions: Metronidazole 500 mg [Flagyl 500 MG] 500 mg PO TID #21 tablet Oxycodone HCl/Acetaminophen [Percocet 5-325 mg Tablet] 1 each PO Q6H PRN 3 Days #12 tablet MDD 4 PRN Reason: Pain
[2023-08-09 13:48] LABS: Appearance Cloudy (Clear); Bacteria Rare /HPF (None Seen); Bilirubin Negative (Negative); Blood Negative (Negative); Epithelial Cells Moderate /HPF (None Seen); Glucose, Urine Negative (Negative); Hyaline Casts NONE SEEN /LPF (0-2); Ketones Trace (Negative); Leukocyte Esterase Negative (Negative); Nitrite Negative (Negative); Ph 6.5 (4.6-8.0); Protein,Urine Dip Negative (Negative); RBC 0-2 /HPF (0-5)
[2023-08-09 13:50] LABS: ADD URINE CULTURE? NO (NO)
[2023-08-09] MEDS ORDERED: Zofran 4 MG/2 ML VIAL IV ONE (13:54)
[2023-08-09] MEDS ORDERED: Hydromorphone 1 mg/ml Injection IV ONE (13:54)
[2023-08-09] MEDS ORDERED: Sodium Chloride 0.9% 1000 ML 1,000 ML IV STA (13:54)
[2023-08-09] MEDS ORDERED: ZOFRAN ODT 4 MG PO ONE (14:12)
[2023-08-09] MEDS ORDERED: Sodium Chloride 0.9% 1000 ML 1,000 ML ONE (14:23)
[2023-08-09] MEDS ORDERED: Zofran 4 MG/2 ML VIAL ONE (14:23)
[2023-08-09] MEDS ORDERED: Hydromorphone 1 mg/ml Injection ONE (14:23)
[2023-08-09 14:24] LABS: Absolute Neutrophil Ct (ANC) 4.02 x10^3/uL (1.4-6.9); BASOPHIL % 0.9 % (0.0-0.4); Basophil (Absolute #) 0.07 x10^3/uL (0-0.4); Eosinophil % 3.4 % (0.00-5.0); Eosinophil (Absolute #) 0.27 x10^3/uL (0-0.5); Hematocrit 42.6 % (35-47); Hemoglobin 13.8 g/dL (12.0-16.0); IMMATURE GRAN # 0.01 x10^3u/L (0.00-0.03); IMMATURE GRAN % 0.1 % (0.00-0.4); Lymphocytes % 36.5 % (24.0-44.0); Mean Corpuscular Hemoglobin 29.5 pg (26-32); Mean Corpuscular Hgb Concent. 32.4 g/dL (32-36); Mean Platelet Volume 9.4 fL (7.5-11.0); Monocyte (Absolute #) 0.67 x10^3/uL (0.0-1.3); Monocytes % 8.4 % (0.0-12.0); Neutrophil % 50.7 % (36.0-66.0); Platelet Count 228 x10^3/uL (150-450); Red Blood Count 4.68 x10^6/uL (4.1-5.4); Red Cell Distribution Width 13.6 % (11.5-14.0); White Blood Count 7.9 x10^3/uL (4.0-10.5)
[2023-08-09 14:37] LABS: ALBUMIN 4.3 g/dL (3.5-5.0); ANION GAP 10.3 MEQ/L (5-15); BILIRUBIN,TOTAL 0.4 mg/dL (0.2-1.3); Calcium 9.2 mg/dL (8.4-10.2); Creatinine 1 1.17 mg/dL (0.52-1.04); EST GLOMERULAR FILTRATION RATE 51.6 ML/MIN; Potassium 4.2 mmol/L (3.5-5.1); Total Protein 7.5 g/dL (6.3-8.2)
[2023-08-09 15:31] VITALS: PULSE 60
[2023-08-09 16:04] VITALS: O2SAT 99
--- NOTE | 2023-08-09 16:28 | XRAY ---
CLINICAL HISTORY:pain COMPARISON:09/19/2018. TECHNIQUE:CT scan of the abdomen and pelvis with the administration of intravenous contrast. FINDINGS: Status post cholecystectomy with no biliary dilatation. The liver is of average size, displaying regular contour and homogeneous texture. No diffuse parenchymal changes or focal lesions could be detected. The normal hepatic vascular pattern is noted with no evidence of vascular distortion, thrombotic venous occlusion, or compromise of the hepatic biliary drainage. The spleen is of average size with no abnormal focal parenchymal attenuation or jose antonio splenic collection. Both kidneys are of average size, shape, and parenchymal thickness with no evidence of back pressure changes or space-occupying lesions. A small non-obstructing stone at the right renal lower calyx measures about 3 mm. Small right renal cortical cyst. The pancreas appears unremarkable, slightly prominent pancreatic duct. The adrenal glands and great vessels are grossly within normal limits apart from mild atheromatous calcifications of the abdominal aorta. No significant lymph jovany enlargement or ascetic fluid collection. The patient is status subtotal hysterectomy. Clear operative site. Both adnexa shows normal CT appearance. Spastic different colonic segments down to the rectum. Normal appendix. Normal filling of the urinary bladder with no stones, masses, or diverticula. Bone window settings showed sacralized L5, lower lumbar spondylotic changes with first-degree degenerative spondylolisthesis of L4, and bilateral L4/5 facet arthropathy. Left ischial bone sclerotic lesion, probably bone island. Lung window settings showed mildly prominent reticulations and mild atelectasis of both basal lung segments. IMPRESSION: 1. Post cholecystectomy with no biliary dilatation. 2. Post subtotal hysterectomy with clear operative site. 3. Spastic different colonic segments down to the rectum, possibly mild colitis, for clinical correlation. 4. Additional findings as described. Electronically Signed by: Lou Dickson MD. (08/09/2023 15:26:54 FL[employer])
[2023-08-09 16:53] VITALS: BP 90/60
== END 2023-08-09 16:55 | disposition home or self-care (01) ==
LOC: ED 12:53
DX: K52.9 Noninfective gastroenteritis and colitis, unspecified (principal); R30.0 Dysuria; R10.30 Lower abdominal pain, unspecified; R11.0 Nausea; Z79.891 Long term (current) use of opiate analgesic; Z79.899 Other long term (current) drug therapy; Z28.310 Unvaccinated for COVID-19; Z72.0 Tobacco use
CPT/HCPCS: 36000; 36415; 74177; 80053; 81001; 83605; 83690; 85025; 96374; 96375; 99284; J1170; J2405

== ENCOUNTER 2024-06-28 15:47 | Emergency (ER) | payer MEDICARE ==
[2024-06-28 16:46] VITALS: TEMP 97.4
--- NOTE | 2024-06-28 16:46 | ERPHSYRPT ---
- History of Present Illness Time Seen by Provider: 06/28/24 16:44 Historian: patient Exam Limitations: no limitations Physician History: 53-year-old female presents to our ED for evaluation of right flank pain and scleral icterus. Patient states she observed that her sclera is becoming yellow. She has pain in her right flank. Patient states that her gallbladder is out and has been out for over a decade. No trauma no fever no nausea vomiting or diaphoresis. Symptoms are mild to moderate in intensity. No specific worsening improving factors. Patient otherwise feels well. She voices no other complaints or concerns at this time. Portions of this note were created with voice recognition technology. There may be grammatical, spelling, punctuation or sound alike errors Timing/Duration: today Activities at Onset: none Quality: aching Abdominal Pain Onset Location: flank Pain Radiation: no radiation Severity of Pain-Max: moderate Severity of Pain-Current: moderate Modifying Factors: Improves With: palpation Associated Symptoms: denies symptoms Previous symptoms: same symptoms as today Allergies/Adverse Reactions: Penicillins Allergy (Verified 06/28/24 16:43) Home Medications: ALPRAZolam [Alprazolam] 1 mg PO BID 07/06/23 [History] Buspirone HCl 15 mg PO DAILY 07/06/23 [History] Meloxicam 1 ea DAILY 07/06/23 [History] Trazodone HCl 100 mg PO DAILY 07/06/23 [History] Hx Tetanus, Diphtheria Vaccination/Date Given: Yes Hx Influenza Vaccination/Date Given: Yes Hx Pneumococcal Vaccination/Date Given: No - Review of Systems Constitutional: No Symptoms, No Fever, No Chills Eyes: No Symptoms Ears, Nose, & Throat: No Symptoms Respiratory: No Symptoms, No Cough, No Dyspnea Cardiac: No Symptoms, No Chest Pain, No Edema, No Syncope Abdominal/Gastrointestinal: No Symptoms, No Abdominal Pain, No Nausea, No Vomiting, No Diarrhea Genitourinary Symptoms: No Symptoms, No Dysuria Musculoskeletal: No Symptoms, No Back Pain, No Neck Pain Skin: No Symptoms, No Rash Neurological: No Symptoms, No Dizziness, No Focal Weakness, No Sensory Changes Psychological: No Symptoms Endocrine: No Symptoms Hematologic/Lymphatic: No Symptoms Immunological/Allergic: No Symptoms All Other Systems: Reviewed and Negative - Past Medical History Pertinent Past Medical History: Yes Neurological History: No Pertinent History ENT History: No Pertinent History Cardiac History: Other Respiratory History: COPD Endocrine Medical History: Hypoglycemia Musculoskeletal History: No Pertinent History GI Medical History: Pancreatitis, Other History: No Pertinent History Psycho-Social History: Depression Female Reproductive Disorders: No Pertinent History Other Medical History: enlarged heart - Past Surgical History Past Surgical History: Yes Neuro Surgical History: No Pertinent History Cardiac: No Pertinent History Respiratory: No Pertinent History Gastrointestinal: Cholecystectomy Genitourinary: Other Musculoskeletal: No Pertinent History Female Surgical History: Tubal Ligation, Other Other Surgical History: PARTIAL HYSTERECTOMY, ACUTE KIDNEY FAILURE - Social History Smoking Status: Current every day smoker How long have you smoked: 30 y rs Exposure to second hand smoke: Yes Drug Use: none Patient Lives Alone: No - Nursing Vital Signs Nursing Vital Signs: Initial Vital Signs Temperature 97.4 F 06/28/24 16:45 Pulse Rate 86 06/28/24 16:45 Blood Pressure 126/79 06/28/24 16:45 O2 Sat by Pulse Oximetry 94 L 06/28/24 16:45 Pain Scale Pain Intensity 0 - Physical Exam General Appearance: no apparent distress, alert Eye Exam: PERRL/EOMI, eyes nml inspection Ears, Nose, Throat Exam: normal ENT inspection, pharynx normal, moist mucous membranes Neck Exam: normal inspection, non-tender, supple, full range of motion Respiratory Exam: normal breath sounds, lungs clear, airway intact, No respiratory distress Cardiovascular Exam: regular rate/rhythm, normal heart sounds Gastrointestinal/Abdomen Exam: soft, No tenderness, No mass Back Exam: normal inspection, normal range of motion, No CVA tenderness, No vertebral tenderness Extremity Exam: normal inspection, normal range of motion, pelvis stable Neurologic Exam: alert, oriented x 3, cooperative, normal mood/affect, sensation nml, No motor deficits Skin Exam: normal color, warm, dry Lymphatic Exam: No adenopathy SpO2 Interpretation: normal O2 Delivery: Room Air - Course Nursing assessment & vital signs reviewed: Yes - CT Exams Abdomen/Pelvis CT Interpretation: Tele-radiologist Report (Stable nonobstructing right renal punctate stone and grade 1 L4 listhesis. Normal appendix. No new acute findings) Ordered Tests: Active Orders 24 hr Category Date Time Status IV Insertion STAT Care 06/28/24 16:46 Active ABDOMEN AND PELVIS W/0 CONTRAS [CT] Stat Exams 06/28/24 16:46 Taken CBC W DIFF Stat Lab 06/28/24 17:04 Completed CMP Stat Lab 06/28/24 17:04 Completed CULTURE,URINE Stat Lab 06/28/24 16:54 Received HCG QUALITATIVE, URINE Stat Lab 06/28/24 16:54 Completed LIPASE Stat Lab 06/28/24 17:04 Completed TROPONIN Q4H Lab 06/28/24 17:04 Completed TROPONIN Q4H Lab 06/28/24 21:15 Completed TROPONIN Q4H Lab 06/29/24 01:00 Ordered UA W/RFX UR CULTURE Stat Lab 06/28/24 16:54 Completed Medication Summary Generic Name Dose Route Start Last Admin Trade Name Freq PRN Reason Stop Dose Admin Sodium Chloride 1,000 mls @ 100 mls/hr 06/28/24 17:00 06/28/24 17:09 Sodium Chloride 0.9% 1000 Ml IV 07/28/24 16:59 100 mls/hr .Q10H TIKA Administration Discontinued Medications Generic Name Dose Route Start Last Admin Trade Name Freq PRN Reason Stop Dose Admin Levofloxacin/Dextrose 500 mg in 100 mls @ 100 mls/hr 06/28/24 19:00 06/28/24 20:18 Levofloxacin 500mg/100ml D5w IV 06/28/24 19:59 Infused STAT STA Infusion Levofloxacin/Dextrose Confirm 06/28/24 19:16 Levofloxacin 500mg/100ml D5w Administered 06/28/24 19:17 Dose 500 mg in 100 mls @ ud IV .STK-MED ONE Morphine Sulfate 2 mg 06/28/24 16:46 06/28/24 17:09 Morphine Sulfate 2 Mg/Ml Inj IV 06/28/24 16:47 2 mg STAT ONE Administration Morphine Sulfate Confirm 06/28/24 17:07 Morphine Sulfate 2 Mg/Ml Inj Administered 06/28/24 17:08 Dose 2 mg .ROUTE .STK-MED ONE Morphine Sulfate 2 mg 06/28/24 19:24 06/28/24 19:27 Morphine Sulfate 2 Mg/Ml Inj IV 06/28/24 19:25 2 mg STAT ONE Administration Morphine Sulfate Confirm 06/28/24 19:26 Morphine Sulfate 2 Mg/Ml Inj Administered 06/28/24 19:27 Dose 2 mg .ROUTE .STK-MED ONE Ondansetron HCl 4 mg 06/28/24 16:46 06/28/24 17:09 Ondansetron Hcl 4 Mg/2 Ml Vial IV 06/28/24 16:47 4 mg STAT ONE Administration Ondansetron HCl Confirm 06/28/24 17:07 Ondansetron Hcl 4 Mg/2 Ml Vial Administered 06/28/24 17:08 Dose 4 mg .ROUTE .STK-MED ONE Lab/Rad Data: Laboratory Result Diagrams 06/28/24 17:04 06/28/24 17:04 Laboratory Results 06/28/24 06/28/24 06/28/24 Range/Units 21:15 17:04 17:04 WBC (3.98-10.04) x10^3/uL RBC (3.93-5.22) x10^6/uL Hgb (11.2-15.7) g/dL Hct (34.1-44.9) % MCV (79.4-94.8) fL MCH (25.6-32.2) pg MCHC (32.2-35.5) g/dL RDW (11.7-14.4) % Plt Count (182-369) x10^3/uL MPV (9.4-12.3) fL Gran % (34.0-71.1) % Immature Gran % (Auto) (0.001-0.429) % Nucleat RBC Rel Count (0.00-0.2) % Eos # (Auto) (0.04-0.36) x10^3/uL Immature Gran # (Auto) (0.001-0.031) x10^3u/L Absolute Lymphs (auto) (1.18-3.74) x10^3/uL Absolute Monos (auto) (0.24-0.86) x10^3/uL Absolute Nucleated RBC (0.00-0.012) x10^3u/L Lymphocytes % (19.3-51.7) % Monocytes % (4.7-12.5) % Eosinophils % (0.7-5.8) % Basophils % (0.1-1.2) % Absolute Granulocytes (1.56-6.13) x10^3/uL Basophils # (0.01-0.08) x10^3/uL Sodium 140 (135-145) mmol/L Potassium 4.1 (3.5-5.1) mmol/L Chloride 112 H (98-107) mmol/L Carbon Dioxide 17 L (22-30) mmol/L Anion Gap 15.1 H (5-15) MEQ/L BUN 15 (7-17) mg/dL Creatinine 0.79 (0.52-1.04) mg/dL Estimated GFR 89.4 ML/MIN Glucose 96 (74-106) mg/dL Calcium 9.2 (8.4-10.2) mg/dL Total Bilirubin 6.60 H (0.2-1.3) mg/dL AST 754 H (14-36) U/L ALT 1206 H (0-35) U/L Alkaline Phosphatase 238 H (38-126) U/L Troponin I < 0.012 0.020 (0.000-0.033) ng/mL Serum Total Protein 7.8 (6.3-8.2) g/dL Albumin 4.3 (3.5-5.0) g/dL Lipase 236 (23-300) U/L Urine Color (Yellow) Urine Appearance (Clear) Urine pH (4.6-8.0) Ur Specific [place] (1.005-1.030) Urine Protein (Negative) Urine Glucose (UA) (Negative) mg/dL Urine Ketones (Negative) Urine Blood (Negative) Urine Nitrite (Negative) Urine Bilirubin (Negative) Urine Urobilinogen (0.2) mg/dL Ur Leukocyte Esterase (Negative) U Hyaline Cast (Auto) (0-2) /LPF Urine Microscopic RBC (0-5) /HPF Urine Microscopic WBC (0-5) /HPF Ur Epithelial Cells (None Seen) /HPF Urine Bacteria (None Seen) /HPF Urine Culture Reflexed (NO) Urine HCG, Qual (NEGATIVE) Slides for Path Review 06/28/24 06/28/24 06/28/24 Range/Units 17:04 16:54 16:54 WBC 6.6 (3.98-10.04) x10^3/uL RBC 5.15 (3.93-5.22) x10^6/uL Hgb 14.6 (11.2-15.7) g/dL Hct 44.8 (34.1-44.9) % MCV 87.0 (79.4-94.8) fL MCH 28.3 (25.6-32.2) pg MCHC 32.6 (32.2-35.5) g/dL RDW 16.6 H (11.7-14.4) % Plt Count 126 L (182-369) x10^3/uL MPV 11.0 (9.4-12.3) fL Gran % 54.3 (34.0-71.1) % Immature Gran % (Auto) 0.3 (0.001-0.429) % Nucleat RBC Rel Count 0.0 (0.00-0.2) % Eos # (Auto) 0.22 (0.04-0.36) x10^3/uL Immature Gran # (Auto) 0.02 (0.001-0.031) x10^3u/L Absolute Lymphs (auto) 2.02 (1.18-3.74) x10^3/uL Absolute Monos (auto) 0.68 (0.24-0.86) x10^3/uL Absolute Nucleated RBC 0.00 (0.00-0.012) x10^3u/L Lymphocytes % 30.7 (19.3-51.7) % Monocytes % 10.3 (4.7-12.5) % Eosinophils % 3.3 (0.7-5.8) % Basophils % 1.1 (0.1-1.2) % Absolute Granulocytes 3.57 (1.56-6.13) x10^3/uL Basophils # 0.07 (0.01-0.08) x10^3/uL Sodium (135-145) mmol/L Potassium (3.5-5.1) mmol/L Chloride (98-107) mmol/L Carbon Dioxide (22-30) mmol/L Anion Gap (5-15) MEQ/L BUN (7-17) mg/dL Creatinine (0.52-1.04) mg/dL Estimated GFR ML/MIN Glucose (74-106) mg/dL Calcium (8.4-10.2) mg/dL Total Bilirubin (0.2-1.3) mg/dL AST (14-36) U/L ALT (0-35) U/L Alkaline Phosphatase (38-126) U/L Troponin I (0.000-0.033) ng/mL Serum Total Protein (6.3-8.2) g/dL Albumin (3.5-5.0) g/dL Lipase (23-300) U/L Urine Color Dark Yellow A (Yellow) Urine Appearance Clear (Clear) Urine pH 5.5 (4.6-8.0) Ur Specific [place] 1.025 (1.005-1.030) Urine Protein Trace A (Negative) Urine Glucose (UA) Negative (Negative) mg/dL Urine Ketones Trace A (Negative) Urine Blood Negative (Negative) Urine Nitrite Positive A (Negative) Urine Bilirubin Large A (Negative) Urine Urobilinogen 1.0 A (0.2) mg/dL Ur Leukocyte Esterase Small A (Negative) U Hyaline Cast (Auto) NONE SEEN (0-2) /LPF Urine Microscopic RBC 0-2 (0-5) /HPF Urine Microscopic WBC 3-5 (0-5) /HPF Ur Epithelial Cells Moderate A (None Seen) /HPF Urine Bacteria Few A (None Seen) /HPF Urine Culture Reflexed YES (NO) Urine HCG, Qual NEGATIVE (NEGATIVE) Slides for Path Review YES - Progress Progress: improved Progress Note: 06/28/24 19:[address] Nick Mandujano who advised transfer to [facility]. I spoke to Dr. Mandujano at 7:28 PM Case discussed with Dr. Gerardo Huynh of the liver service at who accepts transfer at 8:10 PM 06/28/24 20:11 53-year-old female presents to our ED for evaluation of right upper quadrant/flank pain and scleral icterus. Physical exam significant for some flank tenderness and scleral icterus. CT scan negative for acute intra- abdominal pathology however laboratory workup reveals elevated total bili, transaminitis elevated alk phos. Findings were discussed with patient. We also discussed the recommendations per Dr. Mandujano. Patient accepted to . Patient agrees to transfer. Urinalysis significant for urinary tract infection antibiotics administered. Associated transfer documentation completed. Patient observed in our ED for several hours. She is comfortable no active pain. Patient will require further evaluation and treatment. All questions answered. Patient voiced no other complaints or concerns at this time. Portions of this note were created with voice recognition technology. There may be grammatical, spelling, punctuation or sound alike errors Complexity of problem addressed is moderate acute complicated. No critical care time. Complexity of data reviewed and analyzed is extensive. Test ordered test reviewed results analyzed and correlated clinically with history and physical exam. Management discussed with Dr. Nick Mandujano, general surgeon and Dr. Guero Huynh of who accepts transfer as well. Risk of complication and or risk of morbidity/mortality patient management is high. Patient requires transfer to higher level of care. Morphine administered for pain control. Vital stable. Time spent to transfer patient is approximately 30 minutes. Plan of care established for shared decision making. No social determinants of health present to impede follow-up. Portions of this note were created with voice recognition technology. There may be grammatical, spelling, punctuation or sound alike errors 06/29/24 00:42 06/29/24 00:46 Counseled pt/family regarding: lab results, diagnosis, rad results - Departure Departure Disposition: Home Clinical Impression: Abdominal pain, L4 listhesis, Nephrolithiasis, UTI (urinary tract infection), Transaminitis, Total bilirubin, elevated, Elevated alkaline phosphatase level, Scleral icterus Condition: Stable Critical Care Time: No Referrals: BRITT MONTEMAYOR MD [Primary Care Provider] - Follow up/PCP as directed
[2024-06-28] MEDS ORDERED: MORPHINE SULFATE 2 MG INJ ONE ×2 (17:07→19:26)
[2024-06-28] MEDS ORDERED: Sodium Chloride 0.9% 1000 ML 1,000 ML ONE (17:07)
[2024-06-28] MEDS ORDERED: Zofran 4 MG/2 ML VIAL ONE (17:07)
[2024-06-28] MEDS: Sodium Chloride 0.9% 1000 ML 1,000 ML IV SCH (17:09)
[2024-06-28] MEDS: MORPHINE SULFATE 2 MG INJ IV ONE ×2 (17:09→19:27)
[2024-06-28] MEDS: Zofran 4 MG/2 ML VIAL IV ONE (17:09)
[2024-06-28 17:13] LABS: HCG URINE TEST NEGATIVE (NEGATIVE)
[2024-06-28 17:16] LABS: Absolute Neutrophil Ct (ANC) 3.57 x10^3/uL (1.56-6.13); BASOPHIL % 1.1 % (0.1-1.2); Basophil (Absolute #) 0.07 x10^3/uL (0.01-0.08); Eosinophil % 3.3 % (0.7-5.8); Eosinophil (Absolute #) 0.22 x10^3/uL (0.04-0.36); Hematocrit 44.8 % (34.1-44.9); Hemoglobin 14.6 g/dL (11.2-15.7); IMMATURE GRAN # 0.02 x10^3u/L (0.001-0.031); IMMATURE GRAN % 0.3 % (0.001-0.429); Lymphocyte (Absolute #) 2.02 x10^3/uL (1.18-3.74); Lymphocytes % 30.7 % (19.3-51.7); Mean Corpuscular Hemoglobin 28.3 pg (25.6-32.2); Mean Corpuscular Hgb Concent. 32.6 g/dL (32.2-35.5); Monocyte (Absolute #) 0.68 x10^3/uL (0.24-0.86); Monocytes % 10.3 % (4.7-12.5); Neutrophil % 54.3 % (34.0-71.1); Platelet Count 126 x10^3/uL (182-369); Red Blood Count 5.15 x10^6/uL (3.93-5.22); Red Cell Distribution Width 16.6 % (11.7-14.4); White Blood Count 6.6 x10^3/uL (3.98-10.04)
[2024-06-28 17:24] LABS: ALBUMIN 4.3 g/dL (3.5-5.0); ANION GAP 15.1 MEQ/L (5-15); BILIRUBIN,TOTAL 6.6 mg/dL (0.2-1.3); Calcium 9.2 mg/dL (8.4-10.2); Creatinine 1 0.79 mg/dL (0.52-1.04); EST GLOMERULAR FILTRATION RATE 89.4 ML/MIN; Potassium 4.1 mmol/L (3.5-5.1); Total Protein 7.8 g/dL (6.3-8.2)
[2024-06-28 17:31] LABS: ADD URINE CULTURE? YES (NO); Appearance Clear (Clear); Bacteria Few /HPF (None Seen); Bilirubin Large (Negative); Blood Negative (Negative); Epithelial Cells Moderate /HPF (None Seen); Glucose, Urine Negative (Negative); Hyaline Casts NONE SEEN /LPF (0-2); Ketones Trace (Negative); Leukocyte Esterase Small (Negative); Nitrite Positive (Negative); Ph 5.5 (4.6-8.0); Protein,Urine Dip Trace (Negative); RBC 0-2 /HPF (0-5); Specific Gravity 1.025 (1.005-1.030)
[2024-06-28 17:50] LABS: Slide Review 1 YES
[2024-06-28] MEDS ORDERED: Levofloxacin 500MG/100ML D5W 500 MG/100 ML BAG IV ONE (19:16)
[2024-06-28] MEDS: Levofloxacin 500MG/100ML D5W 500 MG/100 ML BAG IV STA (19:18)
[2024-06-28 23:28] VITALS: RESP 16; O2SAT 97
[2024-06-29 00:25] VITALS: PULSE 76
[2024-06-29 01:12] VITALS: BP 125/91
--- NOTE | 2024-06-29 08:37 | XRAY ---
Indication: Right flank pain. Multiple contiguous axial images obtained through the abdomen and pelvis without contrast using renal stone protocol. Comparison: August 09, 2023 Lung bases clear. Heart not enlarged. Stable nonobstructing right renal punctate calculus. No new renal calculus or evidence for obstructive uropathy in either system. Noncontrasted stomach and bowel loops appear nonobstructed with normal appendix. Again cholecystectomy and hysterectomy. No free fluid/air. Remaining liver, pancreas, spleen, adrenal glands, kidneys, ureters, and bladder are unremarkable for noncontrast exam. Minimal aortic calcifications without AAA. Osseous structures intact again with minimal grade 1 L4 listhesis. Impression: 1. Stable nonobstructing right renal punctate calculus, arteriosclerotic disease, and grade 1 L4 listhesis[address] 2. Rem[address] CT abdomen/pelvis without contrast exam is negative.
[2024-06-30 09:13] LABS: HBsAg Screen Confirm. indicated (Negative); HCV Ab Non Reactive (Non Reactive); Hep B Core Ab, IgM Positive (Negative)
[2024-06-30 09:38] LABS: Hep A Ab, IgM Positive (Negative)
== END 2024-06-29 01:35 | disposition short-term general hospital (02) ==
LOC: ED 15:47
DX: R74.01 Elevation of levels of liver transaminase levels (principal); R10.9 Unspecified abdominal pain; M43.16 Spondylolisthesis, lumbar region; N20.0 Calculus of kidney; N39.0 Urinary tract infection, site not specified; E80.6 Other disorders of bilirubin metabolism; R74.8 Abnormal levels of other serum enzymes; H15.89 Other disorders of sclera; Z79.899 Other long term (current) drug therapy; Z72.0 Tobacco use
CPT/HCPCS: 36000; 36415; 74176; 80053; 80074; 81001; 81025; 83690; 84484; 85025; 87086; 96374; 96375; 96376; 99284; J1956; J2270; J2405

== ENCOUNTER 2025-01-26 23:29 | Emergency (ER) | payer MEDICARE ==
[2025-01-26 23:38] VITALS: TEMP 97
--- NOTE | 2025-01-26 23:58 | ERPHSYRPT ---
- History of Present Illness Exam Limitations: no limitations Patient Subjective Stated Complaint: "I've got this pain in my stomach, it's killing me. This is the worst pain I've ever had. It's been going on for a few days but worse today". Triage Nursing Assessment: Pt presents to ER with complaints of RLQ abdominal pain x 3-4 days. Pt is alert and oriented x 3. Skin is pink, warm, and dry. Pt rates pain 10/10 scale. Respirations are slightly labored. Appears anxious and in pain. Guarding her abdomen. Denies diarrhea but states has had some intermittent nausea/vomiting. Abdomen is tender upon exam. Hx of pancreatitis. Denies injury or any other areas of pain or discomfort. Physician History: Patient had right lower quadrant pain. Is been going on for about 3 to 4 days. She does not have any fever or chills that she knows of. She still has her appendix does not have her uterus but I believe she has her ovaries. Pain is localized to the right lower quadrant. She says she has some diarrhea occasionally 2. She has some occasional nausea. Movement and palpation make the symptoms worse.Nothing really makes it better. She has had decreased appetite. Activities at Onset: none Quality: aching Abdominal Pain Onset Location: RLQ Pain Radiation: no radiation Associated Symptoms: denies symptoms Previous symptoms: no prior history Allergies/Adverse Reactions: Penicillins Allergy (Verified 01/26/25 23:38) Home Medications: Buspirone HCl 15 mg PO DAILY 07/06/23 [History] Trazodone HCl 100 mg PO DAILY 07/06/23 [History] Amitriptyline HCl 25 mg [Amitriptyline 25 mg Tablet] 25 mg PO HS 01/26/25 [History] Diclofenac Sodium 50 mg [Voltaren 50 mg] 50 mg PO TID 01/26/25 [History] Gabapentin [Neurontin ] 100 mg PO TID 01/26/25 [History] PANTOPRAZOLE 40 mg Tablet [Protonix 40MG Tablet] 40 mg PO DAILY 01/26/25 [History] Risperidone 1 mg [Risperdal 1 MG] 0.5 mg PO BID 01/26/25 [History] Topiramate 25 mg [Topamax 25 MG] 50 mg PO BID 01/26/25 [History] Venlafaxine HCl ER 75 mg [Effexor XR 75 MG] 75 mg PO DAILY 01/26/25 [History] Hx Tetanus, Diphtheria Vaccination/Date Given: Yes Hx Influenza Vaccination/Date Given: Yes Hx Pneumococcal Vaccination/Date Given: No Immunizations Up to Date: No Travel Risk - International Travel Have you traveled outside of the country in past 3 weeks: No - Emerging Infectious Disease Are you exhibiting symptoms associated with any current EIDs: No Symptoms: Abdominal Pain - Review of Systems Constitutional: No Symptoms Eyes: No Symptoms Ears, Nose, & Throat: No Symptoms Respiratory: No Symptoms Cardiac: No Symptoms Abdominal/Gastrointestinal: Abdominal Pain - Past Medical History Pertinent Past Medical History: Yes Neurological History: No Pertinent History ENT History: No Pertinent History Cardiac History: Other Respiratory History: COPD Endocrine Medical History: Hypoglycemia Musculoskeletal History: No Pertinent History GI Medical History: Pancreatitis, Other History: No Pertinent History Psycho-Social History: Depression Female Reproductive Disorders: No Pertinent History Other Medical History: enlarged heart, ACUTE KIDNEY FAILURE - Past Surgical History Past Surgical History: Yes Neuro Surgical History: No Pertinent History Cardiac: No Pertinent History Respiratory: No Pertinent History Gastrointestinal: Cholecystectomy Genitourinary: Other Musculoskeletal: No Pertinent History Female Surgical History: Tubal Ligation, Other Other Surgical History: PARTIAL HYSTERECTOMY, - Female History Hx Last Menstrual Period: N/A Hx Now: No - Social History Smoking Status: Current every day smoker How long have you smoked: 30 y rs Exposure to second hand smoke: Yes Drug Use: marijuana - Social Determinants of Health Will the patient participate in the screening: Yes Do you worry about a steady place to live?: No Do you have any problems with any of the following?: No known problems In the past 12 months,have you had to go without utilities?: No Transportation Issues: No Has anyone in your support network made you feel unsafe?: No Have you or anyone in your house had to go w/o enough food: No - Nursing Vital Signs Nursing Vital Signs: Initial Vital Signs Temperature 97.0 F 01/26/25 23:32 Pulse Rate 112 H 01/26/25 23:32 Respiratory Rate 20 01/26/25 23:32 Blood Pressure 119/97 01/26/25 23:32 O2 Sat by Pulse Oximetry 97 01/26/25 23:32 Pain Scale Pain Intensity 8 - Physical Exam General Appearance: no apparent distress Eye Exam: PERRL/EOMI Ears, Nose, Throat Exam: normal ENT inspection Neck Exam: normal inspection Respiratory Exam: normal breath sounds Cardiovascular Exam: regular rate/rhythm Gastrointestinal/Abdomen Exam: soft, tenderness (Right lower quadrant) Pelvic Exam: not done Rectal Exam: deferred Back Exam: normal inspection Neurologic Exam: alert, oriented x 3, cooperative Skin Exam: normal color, warm, dry SpO2: 95 - Course Nursing assessment & vital signs reviewed: Yes Ordered Tests: Active Orders 24 hr Category Date Time Status CBC W DIFF Stat Lab 01/26/25 23:53 Completed CMP Stat Lab 01/26/25 23:53 Completed CULTURE,URINE Stat Lab 01/26/25 23:41 Received LIPASE Stat Lab 01/26/25 23:53 Completed UA W/RFX UR CULTURE Stat Lab 01/26/25 23:41 Completed Medication Summary Discontinued Medications Generic Name Dose Route Start Last Admin Trade Name Freq PRN Reason Stop Dose Admin Hydromorphone HCl 1 mg 01/26/25 23:54 01/27/25 00:03 Hydromorphone 1 Mg/1ml Inj IV 01/26/25 23:55 1 mg STAT ONE Administration Hydromorphone HCl Confirm 01/27/25 00:00 Hydromorphone 1 Mg/1ml Inj Administered 01/27/25 00:01 Dose 1 mg .ROUTE .STK-MED ONE Sodium Chloride 1,000 mls @ 999 mls/hr 01/26/25 23:58 01/27/25 01:02 Sodium Chloride 0.9% 1000 Ml IV 01/27/25 00:58 Infused .Q1H1M STA Infusion Sodium Chloride Confirm 01/27/25 00:01 Sodium Chloride 0.9% 1000 Ml Administered 01/27/25 00:02 Dose 1,000 mls @ ud .ROUTE .STK-MED ONE Ceftriaxone Sodium 1 gm in 100 mls @ 200 mls/hr 01/27/25 00:21 01/27/25 00:53 Rocephin 1 Gm / 100 Ml Nacl IV 01/27/25 00:50 Infused STAT STA Infusion Ceftriaxone Sodium Confirm 01/27/25 00:22 Rocephin 1 Gm / 100 Ml Nacl Administered 01/27/25 00:23 Dose 1 gm in 100 mls @ ud IV .STK-MED ONE Ondansetron HCl 4 mg 01/26/25 23:54 01/27/25 00:03 Ondansetron Hcl 4 Mg/2 Ml Vial IV 01/26/25 23:55 4 mg STAT ONE Administration Ondansetron HCl Confirm 01/27/25 00:00 Ondansetron Hcl 4 Mg/2 Ml Vial Administered 01/27/25 00:01 Dose 4 mg .ROUTE .STK-MED ONE Lab/Rad Data: Laboratory Result Diagrams 01/27/25 00:08 01/27/25 00:08 Laboratory Results 01/27/25 01/27/25 01/26/25 Range/Units 00:08 00:08 23:41 WBC 10.9 H (3.98-10.04) x10^3/uL RBC 4.96 (3.93-5.22) x10^6/uL Hgb 14.7 (11.2-15.7) g/dL Hct 43.7 (34.1-44.9) % MCV 88.1 (79.4-94.8) fL MCH 29.6 (25.6-32.2) pg MCHC 33.6 (32.2-35.5) g/dL RDW 13.8 (11.7-14.4) % Plt Count 206 (182-369) x10^3/uL MPV 9.1 L (9.4-12.3) fL Gran % 62.1 (34.0-71.1) % Immature Gran % (Auto) 0.3 (0.001-0.429) % Nucleat RBC Rel Count 0.0 (0.00-0.2) % Eos # (Auto) 0.13 (0.04-0.36) x10^3/uL Immature Gran # (Auto) 0.03 (0.001-0.031) x10^3u/L Absolute Lymphs (auto) 2.56 (1.18-3.74) x10^3/uL Absolute Monos (auto) 1.34 H (0.24-0.86) x10^3/uL Absolute Nucleated RBC 0.00 (0.00-0.012) x10^3u/L Lymphocytes % 23.5 (19.3-51.7) % Monocytes % 12.3 (4.7-12.5) % Eosinophils % 1.2 (0.7-5.8) % Basophils % 0.6 (0.1-1.2) % Absolute Granulocytes 6.78 H (1.56-6.13) x10^3/uL Basophils # 0.07 (0.01-0.08) x10^3/uL Sodium 138 (135-145) mmol/L Potassium 3.3 L (3.5-5.1) mmol/L Chloride 103 (98-107) mmol/L Carbon Dioxide 23 (22-30) mmol/L Anion Gap 16.4 H (5-15) MEQ/L BUN 14 (7-17) mg/dL Creatinine 1.04 (0.52-1.04) mg/dL Estimated GFR 63.9 ML/MIN Glucose 118 H (74-106) mg/dL Calcium 8.9 (8.4-10.2) mg/dL Total Bilirubin 0.70 (0.2-1.3) mg/dL AST 26 (14-36) U/L ALT 20 (0-35) U/L Alkaline Phosphatase 92 (38-126) U/L Serum Total Protein 8.2 (6.3-8.2) g/dL Albumin 4.6 (3.5-5.0) g/dL Lipase 136 (23-300) U/L Urine Color Dark Yellow A (Yellow) Urine Appearance Cloudy A (Clear) Urine pH 5.5 (4.6-8.0) Ur Specific [place] 1.020 (1.005-1.030) Urine Protein 30 (Negative) Urine Glucose (UA) Negative (Negative) mg/dL Urine Ketones Trace A (Negative) Urine Blood Small A (Negative) Urine Nitrite Negative (Negative) Urine Bilirubin Negative (Negative) Urine Urobilinogen 1.0 A (0.2) mg/dL Ur Leukocyte Esterase Moderate A (Negative) U Hyaline Cast (Auto) 3-5 A (0-2) /LPF Urine Microscopic RBC 3-5 (0-5) /HPF Urine Microscopic WBC >100 A (0-5) /HPF Ur Epithelial Cells Few (None Seen) /HPF Urine Bacteria Rare A (None Seen) /HPF Urine Culture Reflexed YES (NO) - Progress Progress Note: Patient had a CT she showed a 3 mm stone in the UVJ it was nonobstructing. She also had a UTI. I gave her some Rocephin and start her on Levaquin. I think that she is safe to go home but she needs close follow-up because of the infected stone. I gave her instructions to strain her urine.I am going to have her follow-up with her primary care doctor tomorrow. She was instructed if she cannot get in tomorrow to come back to the ER. Also if symptoms of fever arise. 01/27/25 09:51 Medical Desision Making - Risk of complications Low Risk: Low risk of morbidity from additional dx testing or treatment - Departure Departure Disposition: Home Clinical Impression: UTI (urinary tract infection), Kidney stone Condition: Good Critical Care Time: No Referrals: BRITT MONTEMAYOR MD [Primary Care Provider] - Follow up/PCP as directed Instructions: Abdominal pain, Severe Abdominal Pain, Adult (DC)
[2025-01-27] MEDS ORDERED: Zofran 4 MG/2 ML VIAL ONE
[2025-01-27] MEDS ORDERED: Hydromorphone 1 mg/ml Injection ONE
[2025-01-27] MEDS ORDERED: Sodium Chloride 0.9% 1000 ML 1,000 ML ONE (00:01)
[2025-01-27] MEDS: Sodium Chloride 0.9% 1000 ML 1,000 ML IV STA (00:02)
[2025-01-27] MEDS: Hydromorphone 1 mg/ml Injection IV ONE (00:03)
[2025-01-27] MEDS: Zofran 4 MG/2 ML VIAL IV ONE (00:03)
[2025-01-27 00:12] LABS: Absolute Neutrophil Ct (ANC) 6.78 x10^3/uL (1.56-6.13); BASOPHIL % 0.6 % (0.1-1.2); Basophil (Absolute #) 0.07 x10^3/uL (0.01-0.08); Eosinophil % 1.2 % (0.7-5.8); Eosinophil (Absolute #) 0.13 x10^3/uL (0.04-0.36); Hematocrit 43.7 % (34.1-44.9); Hemoglobin 14.7 g/dL (11.2-15.7); IMMATURE GRAN # 0.03 x10^3u/L (0.001-0.031); IMMATURE GRAN % 0.3 % (0.001-0.429); Lymphocyte (Absolute #) 2.56 x10^3/uL (1.18-3.74); Lymphocytes % 23.5 % (19.3-51.7); Mean Cell Volume 88.1 fL (79.4-94.8); Mean Corpuscular Hemoglobin 29.6 pg (25.6-32.2); Mean Corpuscular Hgb Concent. 33.6 g/dL (32.2-35.5); Mean Platelet Volume 9.1 fL (9.4-12.3); Monocyte (Absolute #) 1.34 x10^3/uL (0.24-0.86); Monocytes % 12.3 % (4.7-12.5); Neutrophil % 62.1 % (34.0-71.1); Platelet Count 206 x10^3/uL (182-369); Red Blood Count 4.96 x10^6/uL (3.93-5.22); Red Cell Distribution Width 13.8 % (11.7-14.4); White Blood Count 10.9 x10^3/uL (3.98-10.04)
[2025-01-27 00:16] LABS: Appearance Cloudy (Clear); Bacteria Rare /HPF (None Seen); Bilirubin Negative (Negative); Blood Small (Negative); Epithelial Cells Few /HPF (None Seen); Glucose, Urine Negative (Negative); Ketones Trace (Negative); Leukocyte Esterase Moderate (Negative); Nitrite Negative (Negative); Ph 5.5 (4.6-8.0); Protein,Urine Dip 30 (Negative); WBC >100 /HPF (0-5)
[2025-01-27] MEDS ORDERED: ROCEPHIN 1 GM / 100 ML NaCl 1 GM/100 ML IVPB IV ONE (00:22)
[2025-01-27] MEDS: ROCEPHIN 1 GM / 100 ML NaCl 1 GM/100 ML IVPB IV STA (00:23)
[2025-01-27 00:26] LABS: ALBUMIN 4.6 g/dL (3.5-5.0); ANION GAP 16.4 MEQ/L (5-15); BILIRUBIN,TOTAL 0.7 mg/dL (0.2-1.3); Calcium 8.9 mg/dL (8.4-10.2); Creatinine 1 1.04 mg/dL (0.52-1.04); EST GLOMERULAR FILTRATION RATE 63.9 ML/MIN; Potassium 3.3 mmol/L (3.5-5.1); Total Protein 8.2 g/dL (6.3-8.2)
[2025-01-27 00:32] VITALS: BP 129/100; PULSE 90; RESP 14
--- NOTE | 2025-01-27 07:47 | XRAY ---
CLINICAL HISTORY: Right lower quadrant pain COMPARISON: jun 28/2024 16:44:09 OB GYN TECHNIQUE: Contiguous axial images were obtained from the level of the diaphragm to the pubic symphysis with intravenous contrast. Coronal and sagittal reconstructions were likewise performed and indicated to increase the sensitivity for detecting clinically relevant pathology. If IV contrast material had not been administered, the likelihood of detecting abnormalities relevant to the patient's condition would have been substantially decreased. CT scan was performed according to ALARA (as low as reasonable achievable). FINDINGS: The visualized lung bases show atelectatic bands in left lower lobe.-new The liver is normal in size and attenuation. No focal liver lesions are seen. There is no intra or extrahepatic biliary ductal dilatation. Hepatic vasculature is patent. Status post-cholecystectomy. The spleen, pancreas, and adrenal glands are unremarkable. The kidneys are normal in size and attenuation. There is no hydronephrosis or perinephric fat stranding. Approximately 3 mm sized calculus is noted involving right lower ureter without significant back pressure changes. The ureters are normal in caliber and no ureteral calculi are seen. The bladder is normal in contour. Pelvic viscera are unremarkable. No focal or diffuse bowel wall thickening or evidence of bowel obstruction is identified. No evidence of inflamed appendix. Abdominal and pelvic vasculature is patent. No adenopathy or fluid collections are seen. No aggressive appearing osseous lesions are identified. IMPRESSION: 1. Status post-cholecystectomy. 2. Approximately 3 mm sized calculus is noted involving right lower ureter without significant back pressure changes.-new. ( prior the stone is noted in right kidney.) Electronically Signed by: Kush Hutson MD. (01/27/2025 01:40:53 EDT)
[2025-01-27 09:52] VITALS: O2SAT 95
== END 2025-01-27 02:00 | disposition home or self-care (01) ==
LOC: ED 23:29
DX: N39.0 Urinary tract infection, site not specified (principal); N20.0 Calculus of kidney; R10.31 Right lower quadrant pain; Z79.899 Other long term (current) drug therapy; Z72.0 Tobacco use
CPT/HCPCS: 36415; 74177; 80053; 81001; 83690; 85025; 87077; 87086; 87186; 96365; 96374; 96375; 99284; 99285; J0696; J1171; J2405

== ENCOUNTER 2025-02-15 16:31 | Emergency (ER) | payer MEDICARE ==
[2025-02-15 17:57] VITALS: TEMP 98
--- NOTE | 2025-02-15 18:03 | ERPHSYRPT ---
- History of Present Illness Patient Subjective Stated Complaint: pt c/o of right lower abdominal pain that is radiating to the left, pt had a CT done on 01/26/2025 that showed a kidney stone and thinks that is what is causing her pain, N&V, low right back pain Triage Nursing Assessment: Pt brought to the ER by her , hypertensive, rates pain as 10/10, pulses normal, skin n/w/d, N&V, denies chest pain, no difficulty breathing, pt walked into the ER without assistance Timing/Duration: today Activities at Onset: none Hx Tetanus, Diphtheria Vaccination/Date Given: Yes Hx Influenza Vaccination/Date Given: Yes Hx Pneumococcal Vaccination/Date Given: No <TOSIN BOLANOS - Last Filed: 02/15/25 19:06> <NATAN BEAUCHAMP - Last Filed: 02/15/25 22:07> - History of Present Illness Physician History: Patient was here on January 26. She had a kidney stone. It was 3 mm in the ureter. Pain seems to have gotten somewhat better. She has been straining her urine but has not seen a stone. She has been doing okay but the pain has recurred. She has cramping and colicky pain in the right lower quadrant and the right flank. It is intermittent. It kind of comes and goes and its intensity and it is always persistently there but the intensity of the pain varies. Nothing really makes the symptoms better or worse. She does not have any fever or chills she does have some nausea. She does not have any dysuria. (TOSIN BOLANOS) Allergies/Adverse Reactions: Penicillins Allergy (Verified 02/15/25 17:57) Home Medications: Buspirone HCl 15 mg PO DAILY 07/06/23 [History] Trazodone HCl 100 mg PO DAILY 07/06/23 [History] Amitriptyline HCl 25 mg [Amitriptyline 25 mg Tablet] 25 mg PO HS 01/26/25 [History] Diclofenac Sodium 50 mg [Voltaren 50 mg] 50 mg PO TID 01/26/25 [History] Gabapentin [Neurontin ] 100 mg PO TID 01/26/25 [History] PANTOPRAZOLE 40 mg Tablet [Protonix 40MG Tablet] 40 mg PO DAILY 01/26/25 [History] Risperidone 1 mg [Risperdal 1 MG] 0.5 mg PO BID 01/26/25 [History] Topiramate 25 mg [Topamax 25 MG] 50 mg PO BID 01/26/25 [History] Venlafaxine HCl ER 75 mg [Effexor XR 75 MG] 75 mg PO DAILY 01/26/25 [History] Travel Risk - International Travel Have you traveled outside of the country in past 3 weeks: No - Emerging Infectious Disease Are you exhibiting symptoms associated with any current EIDs: Yes Symptoms: Abdominal Pain <TOSIN BOLANOS - Last Filed: 02/15/25 19:06> - Review of Systems Constitutional: No Symptoms Respiratory: No Symptoms Cardiac: No Symptoms Abdominal/Gastrointestinal: Abdominal Pain Genitourinary Symptoms: Flank Pain Musculoskeletal: No Symptoms Skin: No Symptoms <TOSIN BOLANOS - Last Filed: 02/15/25 19:06> - Past Medical History Pertinent Past Medical History: Yes Neurological History: No Pertinent History ENT History: No Pertinent History Cardiac History: Other Respiratory History: COPD Endocrine Medical History: Hypoglycemia Musculoskeletal History: No Pertinent History GI Medical History: Pancreatitis, Other History: No Pertinent History Psycho-Social History: Depression Female Reproductive Disorders: No Pertinent History Other Medical History: enlarged heart, ACUTE KIDNEY FAILURE - Past Surgical History Past Surgical History: Yes Neuro Surgical History: No Pertinent History Cardiac: No Pertinent History Respiratory: No Pertinent History Gastrointestinal: Cholecystectomy Genitourinary: Other Musculoskeletal: No Pertinent History Female Surgical History: Tubal Ligation, Other Other Surgical History: PARTIAL HYSTERECTOMY, - Female History Hx Last Menstrual Period: N/A Hx Now: No (hysterectomy) - Social History Smoking Status: Current every day smoker How long have you smoked: 30 y rs Exposure to second hand smoke: Yes Drug Use: marijuana - Social Determinants of Health Will the patient participate in the screening: Yes Do you worry about a steady place to live?: No Do you have any problems with any of the following?: No known problems In the past 12 months,have you had to go without utilities?: No Transportation Issues: No Has anyone in your support network made you feel unsafe?: No Have you or anyone in your house had to go w/o enough food: No <TOSIN BOLANOS S. - Last Filed: 02/15/25 19:06> - Physical Exam General Appearance: no apparent distress Respiratory Exam: normal breath sounds, lungs clear, No chest tenderness, No respiratory distress Cardiovascular Exam: regular rate/rhythm, normal heart sounds, normal peripheral pulses Gastrointestinal/Abdomen Exam: soft, tenderness (Right lower quadrant), No mass, No ecchymosis, No rebound Pelvic Exam: not done Rectal Exam: deferred Back Exam: normal inspection Extremity Exam: normal inspection Neurologic Exam: alert, oriented x 3, cooperative Skin Exam: normal color, warm SpO2: 99 <TOSIN BOLANOS S. - Last Filed: 02/15/25 19:06> - Nursing Vital Signs Nursing Vital Signs: Initial Vital Signs Temperature 98.0 F 02/15/25 17:43 Pulse Rate 84 02/15/25 17:43 Blood Pressure 159/83 02/15/25 17:43 O2 Sat by Pulse Oximetry 99 02/15/25 17:43 Pain Scale Pain Intensity [Right Lower 10 Distal Abdomen] Pain Intensity 7 - Course Nursing assessment & vital signs reviewed: Yes <TOSIN BOLANOS S. - Last Filed: 02/15/25 19:06> Ordered Tests: Active Orders 24 hr Category Date Time Status ABDOMEN AND PELVIS W CONTRAST [CT] Stat Exams 02/15/25 19:05 Taken CBC W DIFF Stat Lab 02/15/25 19:34 Completed CMP Stat Lab 02/15/25 19:34 Completed UA W/RFX UR CULTURE Stat Lab 02/15/25 20:30 Completed Medication Summary Discontinued Medications Generic Name Dose Route Start Last Admin Trade Name Beatrice PRN Reason Stop Dose Admin Ketorolac Tromethamine 30 mg 02/15/25 20:15 02/15/25 20:27 Ketorolac Tromethamine 30 Mg/Ml Inj IM 02/15/25 20:16 30 mg STAT ONE Administration Ketorolac Tromethamine Confirm 02/15/25 20:26 Ketorolac Tromethamine 30 Mg/Ml Inj Administered 02/15/25 20:27 Dose 30 mg .ROUTE .STK-MED ONE Lab/Rad Data: Laboratory Result Diagrams 02/15/25 19:34 02/15/25 19:34 Laboratory Results 04/23/25 04/23/25 04/23/25 Range/Units 20:30 19:34 19:34 WBC 9.7 (3.98-10.04) x10^3/uL RBC 4.64 (3.93-5.22) x10^6/uL Hgb 13.7 (11.2-15.7) g/dL Hct 42.4 (34.1-44.9) % MCV 91.4 (79.4-94.8) fL MCH 29.5 (25.6-32.2) pg MCHC 32.3 (32.2-35.5) g/dL RDW 14.1 (11.7-14.4) % Plt Count 240 (182-369) x10^3/uL MPV 9.8 (9.4-12.3) fL Gran % 49.5 (34.0-71.1) % Immature Gran % (Auto) 0.5 H (0.001-0.429) % Nucleat RBC Rel Count 0.0 (0.00-0.2) % Eos # (Auto) 0.39 H (0.04-0.36) x10^3/uL Immature Gran # (Auto) 0.05 H (0.001-0.031) x10^3u/L Absolute Lymphs (auto) 3.61 (1.18-3.74) x10^3/uL Absolute Monos (auto) 0.77 (0.24-0.86) x10^3/uL Absolute Nucleated RBC 0.00 (0.00-0.012) x10^3u/L Lymphocytes % 37.3 (19.3-51.7) % Monocytes % 8.0 (4.7-12.5) % Eosinophils % 4.0 (0.7-5.8) % Basophils % 0.7 (0.1-1.2) % Absolute Granulocytes 4.79 (1.56-6.13) x10^3/uL Basophils # 0.07 (0.01-0.08) x10^3/uL Sodium 141 (135-145) mmol/L Potassium 4.3 (3.5-5.1) mmol/L Chloride 105 (98-107) mmol/L Carbon Dioxide 26 (22-30) mmol/L Anion Gap 13.9 (5-15) MEQ/L BUN 19 H (7-17) mg/dL Creatinine 0.72 (0.52-1.04) mg/dL Estimated GFR 99.3 ML/MIN Glucose 94 (74-106) mg/dL Calcium 8.9 (8.4-10.2) mg/dL Total Bilirubin 0.20 (0.2-1.3) mg/dL AST 23 (14-36) U/L ALT 19 (0-35) U/L Alkaline Phosphatase 116 (38-126) U/L Serum Total Protein 7.6 (6.3-8.2) g/dL Albumin 4.3 (3.5-5.0) g/dL Urine Color Yellow (Yellow) Urine Appearance Clear (Clear) Urine pH 6.5 (4.6-8.0) Ur Specific [place] 1.015 (1.005-1.030) Urine Protein Negative (Negative) Urine Glucose (UA) Negative (Negative) mg/dL Urine Ketones Negative (Negative) Urine Blood Negative (Negative) Urine Nitrite Negative (Negative) Urine Bilirubin Negative (Negative) Urine Urobilinogen 0.2 (0.2) mg/dL Ur Leukocyte Esterase Negative (Negative) U Hyaline Cast (Auto) NONE SEEN (0-2) /LPF Urine Microscopic RBC 0-2 (0-5) /HPF Urine Microscopic WBC 0-2 (0-5) /HPF Ur Epithelial Cells Moderate A (None Seen) /HPF Urine Bacteria None Seen (None Seen) /HPF Urine Culture Reflexed NO (NO) <TOSIN BOLANOS - Last Filed: 02/15/25 19:06> - Progress Progress: improved Counseled pt/family regarding: lab results, diagnosis, need for follow-up, rad results <NATAN BEAUCHAMP - Last Filed: 02/15/25 22:07> - Progress Progress Note: On the differential is appendicitis, pyelonephritis, kidney stone, colitis. And will get labs started on her. Also will order a CT abdomen pelvis. I went to turn the patient over to Dr. Beauchamp 02/15/25 19:06 (TOSIN BOLANOS) 54-year-old female with known right ureteral lithiasis. Patient here for recurrent pain. CT scan reveals the same 3 mm stone seen 3 days ago. Stone has advanced in position to the UVJ. Normal kidney function. UA negative for UTI. Patient received a dose of Toradol in our ED. Patient also received a dose of morphine. Pain significantly improved. Patient discharged home with prescription for tamsulosin, Toradol and Waldron. Patient agrees to follow-up with her urologist within 48 hours for reevaluation. She voices no other complaints or concerns at this time and states that she is ready for discharge. Portions of this note were created with voice recognition technology. There may be grammatical, spelling, punctuation or sound alike errors Complexity of problem addressed is moderate acute complicated. No critical care time. Complexity of data reviewed and analyzed as moderate. Test ordered test reviewed results analyzed and correlated clinically with history and physical exam. Risk of complication and or risk of morbidity/mortality of patient management is high. Patient received a dose of morphine in our ED. Patient discharged home with Waldron Toradol and Flomax. Vital stable. Time spent to discharge patient is approximately 20 minutes. Plan of care established for shared decision making. No social determinants of health present to impede follow-up. Portions of this note were created with voice recognition technology. There may be grammatical, spelling, punctuation or sound alike errors 02/15/25 22:05 (NATAN BEAUCHAMP) <TOSIN BOLANOS - Last Filed: 02/15/25 19:06> - Departure Departure Disposition: Home Critical Care Time: No <NATAN BEAUCHAMP - Last Filed: 02/15/25 22:07> - Departure Clinical Impression: Ureteral colic, Ureterolithiasis Condition: Stable Referrals: BRITT MONTEMAYOR MD [Primary Care Provider, [facility]] - Follow up/PCP as directed Additional Instructions: Discharge/Care Plan FIDELINA GARDNER was seen on 02/15/25 in the Emergency Room. The patient was counseled regarding Diagnosis,Lab results, Imaging studies, need for follow up and when to return to the Emergency Room. Prescriptions given: Discharge Note I have spoken with the patient and/or caregivers. I have explained the patient's condition, diagnosis and treatment plan based on the information available to me at this time. I have answered the patient's and/or caregiver's questions and addressed any concerns. The patient and/or caregivers have as good understanding of the patient's diagnosis, condition and treatment plan as can be expected at this point. The vital signs have been stable. The patient's condition is stable and appropriate for discharge from the emergency department. The patient will pursue further outpatient evaluation with the primary care physician or other designated or consulting physician as outlined in the discharge instructions. The patient and/or caregivers are agreeable to this plan of care and follow-up instructions have been explained in detail. The patient and/or caregivers have received these instruction. The patient/and or caregivers are aware that any significant change in condition or worsening of symptoms should prompt an immediate return to this or the closest emergency department or call 911. Prescriptions: Hydrocodone/APAP 5/325 [Waldron 5/325 mg] 1 each PO Q6H PRN PRN 3 Days #10 tablet MDD 4 PRN Reason: Pain Tamsulosin HCl [Flomax] 0.4 mg PO DAILY 14 Days #14 cap Ketorolac Trometh 10 mg Tab [TORAdol 10 MG TABLET] 10 mg PO TID 5 Days #15 tablet
[2025-02-15 19:22] VITALS: RESP 18
[2025-02-15 19:41] LABS: Absolute Neutrophil Ct (ANC) 4.79 x10^3/uL (1.56-6.13); BASOPHIL % 0.7 % (0.1-1.2); Basophil (Absolute #) 0.07 x10^3/uL (0.01-0.08); Eosinophil (Absolute #) 0.39 x10^3/uL (0.04-0.36); Hematocrit 42.4 % (34.1-44.9); Hemoglobin 13.7 g/dL (11.2-15.7); IMMATURE GRAN # 0.05 x10^3u/L (0.001-0.031); IMMATURE GRAN % 0.5 % (0.001-0.429); Lymphocyte (Absolute #) 3.61 x10^3/uL (1.18-3.74); Lymphocytes % 37.3 % (19.3-51.7); Mean Cell Volume 91.4 fL (79.4-94.8); Mean Corpuscular Hemoglobin 29.5 pg (25.6-32.2); Mean Corpuscular Hgb Concent. 32.3 g/dL (32.2-35.5); Mean Platelet Volume 9.8 fL (9.4-12.3); Monocyte (Absolute #) 0.77 x10^3/uL (0.24-0.86); Neutrophil % 49.5 % (34.0-71.1); Platelet Count 240 x10^3/uL (182-369); Red Blood Count 4.64 x10^6/uL (3.93-5.22); Red Cell Distribution Width 14.1 % (11.7-14.4); White Blood Count 9.7 x10^3/uL (3.98-10.04)
[2025-02-15 19:56] LABS: ALBUMIN 4.3 g/dL (3.5-5.0); ANION GAP 13.9 MEQ/L (5-15); BILIRUBIN,TOTAL 0.2 mg/dL (0.2-1.3); Calcium 8.9 mg/dL (8.4-10.2); Creatinine 1 0.72 mg/dL (0.52-1.04); EST GLOMERULAR FILTRATION RATE 99.3 ML/MIN; Potassium 4.3 mmol/L (3.5-5.1); Total Protein 7.6 g/dL (6.3-8.2)
[2025-02-15] MEDS ORDERED: TORAdol 30 mg Injection ONE (20:26)
[2025-02-15] MEDS: TORAdol 30 mg Injection IM ONE (20:27)
[2025-02-15 20:36] LABS: Appearance Clear (Clear); Bacteria None Seen /HPF (None Seen); Bilirubin Negative (Negative); Blood Negative (Negative); Epithelial Cells Moderate /HPF (None Seen); Glucose, Urine Negative (Negative); Hyaline Casts NONE SEEN /LPF (0-2); Ketones Negative (Negative); Leukocyte Esterase Negative (Negative); Nitrite Negative (Negative); Ph 6.5 (4.6-8.0); Protein,Urine Dip Negative (Negative); RBC 0-2 /HPF (0-5); Specific Gravity 1.015 (1.005-1.030); Urobilinogen 0.2 mg/dL (0.2); WBC 0-2 /HPF (0-5)
[2025-02-15] MEDS ORDERED: MORPHINE SULFATE 4 MG INJ ONE (22:09)
[2025-02-15] MEDS: MORPHINE SULFATE 4 MG INJ IM ONE (22:11)
[2025-02-15 22:23] VITALS: BP 181/103; PULSE 81; O2SAT 98
--- NOTE | 2025-02-16 08:46 | XRAY ---
Indication: Right lower quadrant/right flank pain. Multiple contiguous axial images obtained through the abdomen and pelvis using 80 cc Isovue 370 contrast as ordered. Comparison: January 26, 2025 Lung bases now clear. Heart not enlarged. Noncontrasted stomach and bowel loops nonobstructed again with normal appendix. Both kidneys enhance and excrete. Previous 3 mm distal right ureteral calculus has moved more distal now just proximal to UVJ. Again no hydronephrosis/hydroureter. Stable 8 mm right lower renal cyst, cholecystectomy, and hysterectomy. No free fluid/air. Remaining liver, pancreas, spleen, adrenal glands, kidneys, ureters, and bladder are unremarkable. Again minimal distal aortic calcifications without aneurysm/dissection. Impression: 1. Interval antegrade movement 3 mm right ureteral calculus now seen just proximal to UVJ. Again no hydronephrosis/hydroureter or evidence for obstructive uropathy. 2. Stable incidental small right renal cyst. 3. No new/acute intra-abdominal/pelvic findings on this contrasted exam.
== END 2025-02-15 22:23 | disposition home or self-care (01) ==
LOC: ED 16:31
DX: N20.1 Calculus of ureter (principal); R10.31 Right lower quadrant pain; Z79.891 Long term (current) use of opiate analgesic; Z79.899 Other long term (current) drug therapy; Z72.0 Tobacco use
CPT/HCPCS: 36415; 74177; 80053; 81001; 85025; 96372; 99284; 99285; J1885; J2270